=== PATIENT | female | born 1935 | race Caucasian/White ===

== ENCOUNTER 2016-11-23 20:23 | Observation (INO) | payer MEDICARE ==
[~2016-11-23] VITALS: Ht 162.6 cm; Wt 90.5 kg
[~2016-11-23 20:23] MED LIST: LOTR5CAP3 PO; PRED20 PO; SPIR25 PO; VENTAER INH
[2016-11-23 20:36] VITALS: BP 193/98; PULSE 93; RESP 16; TEMP 98.2; O2SAT 96
[2016-11-23 20:41] VITALS: BP 185/96; PULSE 76; RESP 18; TEMP 98.3; O2SAT 93
[2016-11-23] MEDS ORDERED: SIMV20TA PO (20:51)
[2016-11-23] MEDS ORDERED: ESTR0.07 T-DERMAL (20:52)
[2016-11-23] MEDS ORDERED: DOXA1TAB43 PO (20:52)
[2016-11-23] MEDS ORDERED: ALBUAER3 INH (20:53)
[2016-11-23] MEDS ORDERED: CARV12.52 PO (20:53)
[2016-11-23] MEDS ORDERED: ESTR0.62 VAGINAL (20:54)
[2016-11-23] MEDS ORDERED: TRIA37.53 PO (20:54)
[2016-11-23 20:56] VITALS: O2SAT 94
[2016-11-23] MEDS ORDERED: SODIUM CHLORIDE 0.9% FLUSH 5 ML FLUSH IVF PRN (21:00)
--- NOTE | 2016-11-23 21:04 | PD ---
HPI Chief Complaint: Altered Mental Status Time Seen by Provider: 20:56 Travel History International Travel<30 days: No Contact w/Intl Traveler<30days: No Traveled to known affect area: No History of Present Illness HPI 81-year-old female presents to the emergency department with her son with her mental status. Patient was brought in due to recent change in short term memory. Today her had a syncopal episode and ambulance was called approximately 2:30-3:00 this afternoon. It was noted by the patient's neighbor and director of enterprise applications that she was not herself mentally. Her son who was driving down from [place] today arrived at his mother's house, and she was unaware that he was supposed to arrive although the son has texts on his phone where she was checking his progress driving down over the past 2 days. Patient is alert and oriented to time and place, and is able to pass acute stroke testing including serial sevens, the ability to say "teach a dog new tricks", "natural resource manager ", "tiptop", "without difficulty". Patient is unable to name the president however , and normally she is very pleasant medically savvy according to her son. She has no focal physical deficits. No pronator drift. No facial droop. No eye lid weakness. Patient is seen in conjunction with Dr. Figueroa in the room. Patient is complaining of no pain, dizziness, shortness of breath, or chest pain. She is aware of the fact that her was admitted although asked how he is doing repeatedly according to the son. Patient has no real recollection of the last day and a half. She is allergic to adhesive inhibitors and codeine. PFSH Past Medical History Asthma: Yes Diminished Hearing: No Immunizations Current: Yes Tetanus Vaccination: Unknown Influenza Vaccination: Yes ?: Not Menopausal: Yes Past Surgical History Abdominal Surgery: Yes (removal of a intestinal tumor.) Appendectomy: Yes Hysterectomy: Yes Joint Replacement: Yes (right knee miniscus) Other Surgery: Yes (removal of a breast tumor) Social History Alcohol Use: No Tobacco Use: No Substance Use: No Allergies-Medications (Allergen,Severity, Reaction): Coded Allergies: Codeine (Verified Allergy, Severe, 11/23/16) LIZZIE Inhibitors (Verified Allergy, Unknown, 11/23/16) Reported Meds & Prescriptions Reported Meds & Active Scripts Active Reported Triamterene-Hydrochlorothiazide 37.5-25 Mg Cap 1 Cap PO DAILY Premarin Vaginal (Estrogens, Conjugated Vaginal) 0.625 Mg/Gm Cream 1 Gm VAGINAL HS Proair Hfa 8.5 GM Inh (Albuterol Sulfate) 90 Mcg/Act Aer 2 Puff INH Q4-6H PRN 108 mcg/actuation Carvedilol 12.5 Mg Tab 12.5 Mg PO BID Doxazosin (Doxazosin Mesylate) 8 Mg Tab 8 Mg PO DAILY Estradiol Patch 168 HR (Estradiol) 0.075 Mg/24 Hr Patch 1 Patch T-DERMAL Q7D Remove old patch and discard when new patch being placed. Simvastatin 20 Mg Tab 20 Mg PO DAILY Review of Systems ROS Limitations: Clinical Condition, Poor Historian Except as stated in HPI: all other systems reviewed are Neg General / Constitutional: No: Fever Eyes: No: Visual changes HENT: No: Headaches Cardiovascular: No: Chest Pain or Discomfort Respiratory: No: Shortness of Breath Gastrointestinal: No: Abdominal Pain Genitourinary: No: Dysuria Musculoskeletal: No: Pain Skin: No Rash Neurologic: No: Weakness Psychiatric: No: Depression Endocrine: No: Polydipsia Hematologic/Lymphatic: No: Easy Bruising Physical Exam Exam Limitations: Clinical Condition, Altered Mental Status Narrative GENERAL: Patient appears mildly anxious but otherwise in no acute distress. SKIN: Warm and dry. Normal color. Normal turgor. HEAD: Atraumatic. Normocephalic. EYES: Pupils equal and round. No scleral icterus. No injection or drainage. ENT: No nasal bleeding or discharge. Mucous membranes pink and moist. Pharynx is clear. Airway is patent. NECK: Trachea midline. No JVD. Supple nontender. CARDIOVASCULAR: Regular rate and rhythm. No murmurs gallops or rubs appreciated. RESPIRATORY: No accessory muscle use. Clear to auscultation. Breath sounds equal bilaterally. GASTROINTESTINAL: Abdomen soft, non-tender, nondistended. Hepatic and splenic margins not palpable. MUSCULOSKELETAL: Extremities without clubbing, cyanosis, or edema. No obvious deformities. NEUROLOGICAL: Awake and alert. No obvious cranial nerve deficits. Motor grossly within normal limits. Five out of 5 muscle strength in the arms and legs. Normal speech. Patient is seemingly very clear in most respects except she cannot recall who is currently president. Patient has facial droop or weakness. She is able to speak clearly and repeat appropriately "teach a dog new tricks, natural resource manager, tiptop", serial sevens, and serial threes appropriately. She has no focal deficit appreciated by physical exam. No pronator drift appreciated. PSYCHIATRIC: Appropriate mood and affect; insight and judgment normal. Data Data Last Documented VS Vital Signs Date Time Temp Pulse Resp B/P Pulse Ox O2 Delivery O2 Flow Rate FiO2 11/23/16 22:10 63 18 157/76 94 Room Air 11/23/16 20:41 98.3 Orders Electrocardiogram (11/23/16 20:54) Prothrombin Time / Inr (Pt) (11/23/16 20:54) Act Partial Throm Time (Ptt) (11/23/16 20:54) Complete Blood Count With Diff (11/23/16 20:54) Comprehensive Metabolic Panel (11/23/16 20:54) Creatine Kinase (Cpk) (11/23/16 20:54) Troponin I (11/23/16 20:54) Urinalysis - C+S If Indicated (11/23/16 20:54) Ct Brain W/O Iv Contrast(Rout) (11/23/16 20:54) Chest, Single Ap (11/23/16 20:54) Ecg Monitoring (11/23/16 20:54) Iv Access Insert/Monitor (11/23/16 20:54) Oximetry (11/23/16 20:54) Sodium Chloride 0.9% Flush (Ns Flush) (11/23/16 21:00) Carvedilol (Coreg) (11/23/16 21:30) Ondansetron Inj (Zofran Inj) (11/23/16 21:30) B-Type Natriuretic Peptide (11/23/16 21:38) Labs Laboratory Tests Test 11/23/16 21:00 White Blood Count 8.2 TH/MM3 Red Blood Count 4.84 MIL/MM3 Hemoglobin 16.0 GM/DL Hematocrit 46.3 % Mean Corpuscular Volume 95.8 FL Mean Corpuscular Hemoglobin 33.2 PG Mean Corpuscular Hemoglobin 34.6 % Concent Red Cell Distribution Width 13.4 % Platelet Count 175 TH/MM3 Mean Platelet Volume 10.0 FL Neutrophils (%) (Auto) 72.2 % Lymphocytes (%) (Auto) 18.3 % Monocytes (%) (Auto) 7.6 % Eosinophils (%) (Auto) 1.3 % Basophils (%) (Auto) 0.6 % Neutrophils # (Auto) 5.9 TH/MM3 Lymphocytes # (Auto) 1.5 TH/MM3 Monocytes # (Auto) 0.6 TH/MM3 Eosinophils # (Auto) 0.1 TH/MM3 Basophils # (Auto) 0.0 TH/MM3 CBC Comment DIFF FINAL Differential Comment Prothrombin Time 10.8 SEC Prothromb Time International 1.0 RATIO Ratio Activated Partial 24.3 SEC Thromboplast Time Sodium Level 135 MEQ/L Potassium Level 3.8 MEQ/L Chloride Level 101 MEQ/L Carbon Dioxide Level 25.1 MEQ/L Anion Gap 9 MEQ/L Blood Urea Nitrogen 12 MG/DL Creatinine 1.09 MG/DL Estimat Glomerular Filtration 48 ML/MIN Rate Random Glucose 127 MG/DL Calcium Level 9.5 MG/DL Total Bilirubin 0.6 MG/DL Aspartate Amino Transf 26 U/L (AST/SGOT) Alanine Aminotransferase 32 U/L (ALT/SGPT) Alkaline Phosphatase 73 U/L Total Creatine Kinase 108 U/L Troponin I LESS THAN 0.02 NG/ML Total Protein 8.0 GM/DL Albumin 3.7 GM/DL MDM Medical Decision Making Medical Screen Exam Complete: Yes Emergency Medical Condition: Yes Differential Diagnosis Acute short-term memory loss. Possible CVA. Possible TIA. Possible stress reaction. Electrolyte imbalance. Delirium. Narrative Course Patient appears medically stable at time of exam. CT the head is ordered without contrast. EKG is ordered. Labs ordered including CBC, CMP, creatinine, troponin, proBNP and urinalysis. Chest x-ray is ordered. Patient is given carvedilol 12.5 mg by mouth. CBC is unremarkable with a hemoglobin of 16. CMP shows sodium slightly low at 135. Potassium is normal 3.8. Chloride is 101. Creatinine slightly elevated at 1.09. Random glucose is 127. Troponin is less than 0.02. ProBNP is pending. Coags are negative. Head CT shows no acute process in the brain per radiology. Chest x-ray showed diffuse interstitial markings suggestive of pulmonary venous hypertension versus edema per radiologist. Patient is discussed with Dr. Figueroa, who recommends the patient be admitted for observation and neurological consult in the morning. 2220 hrs. call was placed to Dr. Baron discussed the patient for admission. Diagnosis Primary Impression: Mental status alteration Qualified Code: R40.4 - Transient alteration of awareness Additional Impression: Memory loss of unknown cause Condition: Stable Mihai Orta Nov 23, 2016 21:04
[2016-11-23 21:21] LABS: AUTOMATED NEUTROPHIL # 5.9 TH/MM3 (1.8-7.7); BASOPHIL % 0.6 % (0.0-2.0); EOSINOPHIL # 0.1 TH/MM3 (0-0.4); EOSINOPHIL % 1.3 % (0.0-4.0); HEMATOCRIT 46.3 % (35.0-46.0); HEMO FLAGS DIFF FINAL; LYMPH % 18.3 % (9.0-44.0); LYMPHOCYTE # 1.5 TH/MM3 (1.0-4.8); MEAN CELL VOLUME 95.8 FL (80.0-100.0); MEAN CORPUSCULAR HEMOGLOBIN 33.2 PG (27.0-34.0); MEAN CORPUSCULAR HGB CONC 34.6 % (32.0-36.0); MONO % 7.6 % (0.0-8.0); NEUT % 72.2 % (16.0-70.0); PLATELET COUNT 175 TH/MM3 (150-450); RED BLOOD COUNT 4.84 MIL/MM3 (4.00-5.30); RED CELL DISTRIBUTION WIDTH 13.4 % (11.6-17.2); WHITE BLOOD COUNT 8.2 TH/MM3 (4.0-11.0)
[2016-11-23 21:23] LABS: APTT (PATIENT) 24.3 SEC (24.3-30.1); PROTHROMBIN TIME - PATIENT 10.8 SEC (9.8-11.6)
[2016-11-23 21:29] VITALS: BP 166/79; PULSE 72; RESP 18; O2SAT 94
[2016-11-23] MEDS ORDERED: ONDANSETRON HCL 4 MG/2 ML VIAL IV PUSH ONE (21:30)
[2016-11-23] MEDS ORDERED: CARVEDILOL 12.5 MG TAB PO ONE (21:30)
[2016-11-23 21:31] LABS: ANION GAP 9 MEQ/L (5-15); BICARBONATE 25.1 MEQ/L (21.0-32.0); BLOOD UREA NITROGEN 12 MG/DL (7-18); CHLORIDE 101 MEQ/L (98-107); GLOMERULAR FILTRATION RATE 48 ML/MIN (>89); POTASSIUM 3.8 MEQ/L (3.5-5.1); SODIUM (NA) 135 MEQ/L (136-145)
[2016-11-23 21:37] LABS: ALKALINE PHOSPHATASE 73 U/L (45-117); ALT (GPT) 32 U/L (10-53); AST (GOT) 26 U/L (15-37); CREATINE KINASE 108 U/L (26-192); TOTAL BILIRUBIN ADULT 0.6 MG/DL (0.2-1.0)
--- NOTE | 2016-11-23 22:09 | RADRPT ---
EXAM DATE/TIME: 11/23/2016 21:03 [facility] COMPARISON: No previous studies available for comparison. INDICATIONS : Generalized weakness; evaluate for CVA. RADIATION DOSE: 42.92 CTDIvol (mGy) MEDICAL HISTORY : Intestinal tumor. SURGICAL HISTORY : Colon resection. Hysterectomy.Appendectomy.Lumpectomy. ENCOUNTER: Initial ACUITY: 1 day PAIN SCALE: 0/10 LOCATION: cranial TECHNIQUE: Multiple contiguous axial images were obtained of the head. Using automated exposure control and adj ustment of the mA and/or kV according to patient size, radiation dose was kept as low as reasonably a chievable to obtain optimal diagnostic quality images. FINDINGS: CEREBRUM: The ventricles are normal for age. No evidence of midline shift, mass lesion, hemorrhage or acute in farction. No extra-axial fluid collections are seen. POSTERIOR FOSSA: The cerebellum and brainstem are intact. The 4th ventricle is midline. The cerebellopontine angle i s unremarkable. EXTRACRANIAL: The visualized portion of the orbits is intact. SKULL: The calvaria is intact. No evidence of skull fracture. CONCLUSION: No acute disease. Obie Roy MD on November 23, 2016 at 22:06 Board Certified Radiologist. This report was verified electronically.
[2016-11-23 22:10] VITALS: BP 157/76; PULSE 63; RESP 18; O2SAT 94
--- NOTE | 2016-11-23 22:16 | RADRPT ---
EXAM DATE/TIME: 11/23/2016 21:16 [facility] COMPARISON: No previous studies available for comparison. INDICATIONS : Lightheaded, dizziness, and memory lapse. MEDICAL HISTORY : None. SURGICAL HISTORY : None. ENCOUNTER: Initial ACUITY: 1 day PAIN SCORE: 0/10 LOCATION: Bilateral chest FINDINGS: There heart size is upper limits of normal. The lungs demonstrate diffuse interstitial markings. Fo ange alveolar consolidation is not clearly seen. No effusion is seen. CONCLUSION: Diffuse increased interstitial markings likely representing pulmonary venous hyperten joanie or mild edema. Obie Roy MD on November 23, 2016 at 22:09 Board Certified Radiologist. This report was verified electronically.
[2016-11-23] MEDS ORDERED: DEXTROSE 50% IN WATER 50 ML VIAL(D50) IV PUSH PRN (22:45)
[2016-11-23] MEDS ORDERED: ONDANSETRON HCL 4 MG/2 ML VIAL IVP PRN (22:45)
[2016-11-23] MEDS ORDERED: SODIUM CHLORIDE 0.9% FLUSH 5 ML FLUSH FLUSH PRN (22:45)
[2016-11-23] MEDS ORDERED: NALOXONE HCL 0.4 MG/ML AMP IV PRN (22:45)
[2016-11-23] MEDS ORDERED: GLUCAGON 1 MG/ML VIAL OTHER PRN (22:45)
[2016-11-23] MEDS ORDERED: ACETAMINOPHEN 325 MG TAB PO PRN (22:45)
[2016-11-23] MEDS ORDERED: cloNIDine HCL 0.1 MG TAB PO PRN (23:00)
[2016-11-24 00:02] LABS: BACTERIA, URINE RARE /hpf; BLOOD, URINE NEG (NEG); GLUCOSE,URINE NEG (NEG); KETONE, URINE NEG (NEG); MUCUS URINE FEW /lpf (OCC); NITRITE,URINE NEG (NEG); SQUAMOUS EPITHELIAL CELL URINE 11 /hpf (0-5); URINE COLOR LIGHT-YELLOW (YELLW/STRAW)
[2016-11-24 00:15] LABS: COMMENT (UR) CATH-CULTURE IND; CULTURE IF INDICATED CATH CULTURE IND
[2016-11-24 01:37] VITALS: BP 137/78; PULSE 78; RESP 18; O2SAT 96
[2016-11-24] MEDS: DOXAZOSIN MESYLATE 4 MG TAB PO SCH ×2 (01:39→21:00)
[2016-11-24 02:19] VITALS: BP 150/78; PULSE 72; RESP 20; TEMP 98.2; O2SAT 92
[2016-11-24] MEDS: INSULIN ASPART SUPPLEMENTAL SCALE SQ SCH ×4 (06:08→20:12)
[2016-11-24 08:08] LABS: AMPHETAMINE, URINE NEG (NEG); BARBITURATES, URINE NEG (NEG); COCAINE, URINE NEG (NEG)
[2016-11-24] MEDS ORDERED: DOXAZOSIN MESYLATE 4 MG TAB PO SCH (09:00)
[2016-11-24] MEDS ORDERED: INFLUENZA VIRUS VACCINE (QUADRIVALENT) 0.5 ML SYR IM ONE (09:00)
[2016-11-24] MEDS ORDERED: PNEUMOCOCCAL POLYVALENT INJ 25 MCG/0.5 ML SYR IM ONE (09:00)
[2016-11-24] MEDS: PRAVASTATIN SOD 20 MG TAB PO SCH (09:15)
[2016-11-24] MEDS: TRIAMTERENE/HCTZ 37.5 MG/25 MG CAP PO SCH (09:15)
[2016-11-24] MEDS: CARVEDILOL 12.5 MG TAB PO SCH ×2 (09:15→21:23)
[2016-11-24] MEDS: SODIUM CHLORIDE 0.9% FLUSH 5 ML FLUSH FLUSH SCH ×2 (09:16→21:00)
--- NOTE | 2016-11-24 09:16 | RADRPT ---
EXAM DATE/TIME: 11/24/2016 08:31 [facility] COMPARISON: No previous studies available for comparison. INDICATIONS : Transient ischemic attack. MEDICAL HISTORY : Asthma. SURGICAL HISTORY : Appendectomy. Hysterectomy. Breast tumor removal. Right meniscus repair. Intestinal tumor removal. ENCOUNTER: Initial ACUITY: 2 days PAIN SCORE: 0/10 LOCATION: Bilateral neck PEAK SYSTOLIC VELOCITIES (cm/sec): ICA/CCA RATIO: Right: 1.4 Left: 1.1 ICA: Right: 97 Left: 87 CCA: Right: 71 Left: 81 ECA: Right: 90 Left: 99 VERTEBRAL: Right: 49 antegrade Left: 34 antegrade TECH NOTE: Elevated flow velocities and ICA/CCA ratios have been found to correlate with increased degrees of vessel stenosis, calculated as percentage of diameter relative to a normal segment of distal ICA/CCA FINDINGS: RIGHT CAROTID: Minimal patchy diffuse plaque. CCA is tortuous.. The waveforms are within normal limits. LEFT CAROTID: Minimal diffuse patchy plaque. The waveforms are within normal limits. VERTEBRAL ARTERIES: Antegrade flow is seen in both vertebral arteries. MISCELLANEOUS: None. CONCLUSION: Minimal bilateral carotid atherosclerosis. No stenosis. Obie Nicholson MD on November 24, 2016 at 9:14 Board Certified Radiologist. This report was verified electronically.
[2016-11-24 09:26] VITALS: BP 133/60; PULSE 62; RESP 18; TEMP 97; O2SAT 93
[2016-11-24 12:05] VITALS: BP 123/60; PULSE 58; RESP 18; O2SAT 95
--- NOTE | 2016-11-24 12:21 | MH ---
cc: ELZBIETA GALICIA M.D. DATE OF ADMISSION: 11/23/2016 ADMITTING DIAGNOSIS Altered mental status. HISTORY OF PRESENT ILLNESS This 81-year-old white female well-known to undersigned physician had recently experienced an upper respiratory infection with a cough and congestion, she states that it has been slowly improving. On the day of admission, the patient's had a syncopal episode and ended up being admitted to the hospital. When the patient was questioned about the events that occurred at that time she was unable to recall the events including calling EMS to take her to the hospital. She reported she had a gap in her memory but also she could not remember that her son was coming down to visit today and that she had been texting with him earlier. The patient herself had no syncope, no lightheadedness, dizziness, chest pain, shortness of breath, nausea, vomiting, diarrhea, she has had a cough. She has a history of asthma but denies any wheezing or dyspnea on exertion. She has had no abdominal pain, diarrhea, constipation, melena, hematochezia, vertigo, headaches, visual changes. She does have a problem with chronic urinary urgency due to a very large cystocele and rectocele but she has had no dysuria or hematuria. Initially it was thought that the patient might be hypoglycemic as she reported that she had not eaten or drank anything all day prior to her 's event. This combined with the stress of the event may have precipitated the hypoglycemia; however, after the patient ate and drank her mental status still remained not at baseline. She herself was taken to the emergency department and underwent an evaluation. PAST MEDICAL HISTORY The patient's past medical history is significant for - 1. History of skin cancers. 2. Asthma which is only symptomatic when she has an upper respiratory infection. 3. Generalized osteoarthritis. 4. Hypertension. 5. She has a very large rectocele, cystocele and enterocele but has declined surgical intervention. 6. She has non-insulin dependent diabetes. 7. Hyperlipidemia. 8. Carpal tunnel syndrome for which she underwent bilateral carpal tunnel releases. 9. She has had trigger fingers which have been released as well. 10. She has a history of a hyperplastic colonic polyp in 2011. 11. She is status post a right eye vitrectomy due to a macular retinal tear. 12. She is status post hysterectomy with right oophorectomy. 13. Status post left breast biopsy with benign pathology. 14. Status post resection of a benign tumor from the colon. 15. She is status post removal of skin cancers. 16. She had bilateral carpal tunnel release. 17. She has also had several trigger releases. MEDICATIONS Her current medications are - 1. Doxazosin 8 mg at bedtime. 2. Carvedilol 12.5 mg b.i.d. 3. Triamterene/HCTZ 37.5/25 mg one tablet daily. 4. Meclizine 25 mg three times a day as needed for vertigo. 5. Estradiol vaginal cream 0.1 mg per gram apply 4 grams intravaginally twice weekly. 6. Metformin ER 750 mg daily. 7. ProAir HFA inhaler two puffs every 4 hours as needed for shortness of breath or wheezing. 8. Estradiol patch 0.075 mg apply one patch weekly. 9. Simvastatin 20 mg one tablet daily. ALLERGIES CODEINE - WHICH CAUSED NAUSEA AND VOMITING. LIZZIE INHIBITORS - WHICH CAUSED ANGIOEDEMA. FAMILY HISTORY Positive for hypertension in her mother. She has siblings with melanoma and hypertension. SOCIAL HISTORY She is , retired. She previously worked with her in the [email or web address] business. She does not actively smoke nor did she in the past. She has an occasional alcoholic beverage on a social basis. REVIEW OF SYSTEMS Negative except as outlined above. PHYSICAL EXAMINATION VITAL SIGNS: Upon arrival to the emergency department the patient's blood pressure was 193/98 with a heart rate of 93, respirations 16, temperature 98.2 degrees Fahrenheit, oxygen saturation on room air was 96%. At the current time the blood pressure is 133/60 with a heart rate of 62, respirations 18, temperature 97 degrees Fahrenheit, oximetry is 93% on room air. GENERAL: This is an obese, elderly, white female sitting on the edge of the bed in no acute distress. HEENT: Pupils are equal, round and reactive to light. Extraocular movements are intact. Sclerae anicteric. Conjunctivae are pink. Mouth and throat reveal moist mucous membranes, no erythema or exudates. Dentition is good. NECK: Neck is supple without lymphadenopathy, JVD, bruits or thyromegaly. CARDIOVASCULAR: Revealed regular rate and rhythm without murmurs, rubs or gallops. LUNGS: Lungs are clear to auscultation without wheezes, rhonchi or rales. ABDOMEN: Abdomen is soft, nontender, nondistended with bowel sounds present. No masses palpable. GENITOURINARY/RECTAL: Deferred. LOWER EXTREMITIES: Reveal no appreciable edema. No calf tenderness. No Kusum's sign. 2+ distal pulses. No open areas. NEUROLOGIC: At the current time the patient is awake, alert, oriented x3. Speech is intact. Cranial nerves intact. No lateralizing deficits. Downgoing toes bilaterally. Cognition and memory appear to be intact except for a period of time yesterday of approximately 2-3 hours where she states that she has only partial memory of the events. She has recollection of the events of being in the emergency department yesterday evening. SKIN: Skin is warm and dry. LABORATORY DATA The patient's CBC was significant only for a hemoglobin of 16, hematocrit of 46.3. Comprehensive metabolic profile revealed a sodium o 135 which is just minimally low, creatinine 1.09 which is elevated, glucose was 127. The TSH was 2.020, troponin less than 0.02, CK was 108, ammonia level 31, BNP was 50. A urine drug screen was negative. Urinalysis revealed a specific gravity of 1.009, pH 6.0, large amount of leukocyte esterase, 9 RBCs, 5 WBCs, 11 epithelial cells, rare bacteria. Culture is pending. INR was 1.0, APTT 24.3. Carotid Dopplers revealed minimal bilateral carotid atherosclerosis but no stenosis. Chest x-ray revealed diffuse interstitial markings, likely representing pulmonary venous hypertension or mild edema. The noncontrast CT scan of the head revealed no acute disease. IMPRESSION This 81-year-old white female presented with altered mental status of acute onset. The onset coincided with an acute traumatic event with her having a syncopal episode at home. Possible etiologies include acute stress reaction versus hypertensive crisis versus hypoglycemia versus TIA versus CVA versus metabolic disturbance, less likely is seizure disorder. Other possible etiology includes delirium associated with an acute infection. PLAN 1. The patient does have a urinalysis suspicious for a UTI. I have started her on ciprofloxacin 250 mg twice daily. We will also evaluate with an EEG and an MRI of the brain to evaluate for the possibility of seizures versus TIA versus CVA. We have basically ruled out a metabolic disturbance with the current evaluation; however, I have consulted Neurology for assistance with further evaluation. The patient's mental status is back to baseline today. We will await Neurology consultation to determine if she needs any further evaluation than what is already ordered, if not the patient may be able to be discharged home later today. 2. Non-insulin and diabetes. I have held the patient's metformin at this time, blood sugars have been under adequate control. We will likely resume metformin after we are sure she is eating and drinking well. 3. Hypertension. The patient's blood pressure has been elevated overnight, blood pressure is better now. She is receiving her carvedilol and doxazosin and HCTZ. We will monitor blood pressure and adjust medication as needed. 4. Hyperlipidemia. The patient is to continue with statin therapy. 5. History of asthma. The patient is asymptomatic. Lungs are clear. Chest x-ray revealed some increased interstitial markings but there is no clinical support for a diagnosis of congestive heart failure. We will follow. 6. Upper respiratory infection. The patient states that her symptoms have greatly improved. She is not coughing or having any sinus or nasal congestion at this time. We will follow. I have explained to the patient her current condition and the plan of care, she expressed understanding and agreement. MD NEAL Gamino/BLAIRE /10:46 AM /11:29 AM
[2016-11-24] MEDS: CIPROFLOXACIN 250 MG TAB PO SCH ×2 (14:21→21:23)
--- NOTE | 2016-11-24 16:24 | EKG ---
Date Performed: 11/23/2016 Time Performed: 20:46:51 PTAGE: 81 years EKG: Sinus rhythm NORMAL ECG NO PREVIOUS TRACING DOCTOR: Florentin Lenz Interpretating Date/Time 11/24/2016 16:23:15
[2016-11-24] MEDS ORDERED: GADODIAMIDE PF 287 MG/ML 20 ML VIAL (for RAD MRI) IV ONE (16:57)
--- NOTE | 2016-11-24 19:16 | RADRPT ---
EXAM DATE/TIME: 11/24/2016 16:47 [facility] COMPARISON: No previous studies available for comparison. INDICATIONS : Altered mental status. CONTRAST: 18 cc Omniscan (gadodiamide) IV MEDICAL HISTORY : Diabetes mellitus type 2. SURGICAL HISTORY : Appendectomy. Hysterectomy. ENCOUNTER: Initial ACUITY: 1 day PAIN SCORE: 0/10 LOCATION: cranial TECHNIQUE: Multiplanar, multisequence MRI of the brain was performed both prior to and following the administrat ion of paramagnetic contrast. FINDINGS: CEREBRUM: The ventricles are normal for age. No evidence of midline shift, mass lesion, hemorrhage or acute in farction. No extraaxial fluid collections are seen. The pituitary gland and suprasellar cistern are normal in configuration. WHITE MATTER: Mild signal abnormalities are seen in the white matter. POSTERIOR FOSSA: The cerebellum and brainstem are intact. The 4th ventricle is midline. The cerebellopontine angle is unremarkable. The cerebellar tonsils are normal in position. DIFFUSION IMAGING: No focal areas of restricted diffusion are seen. No evidence of acute infarction. EXTRACRANIAL: The visualized portions of the orbits and paranasal sinuses are unremarkable. POST-CONTRAST: No abnormal areas of parenchymal or dural enhancement. No evidence of blood-brain barrier breakdown. CONCLUSION: 1. No acute findings. Mild chronic ischemic changes in the periventricular white matter. No recent in farct. No mass, hemorrhage or shift. No hydrocephalus. No abnormal enhancement post contrast. Liam Jorgensen MD on November 24, 2016 at 19:11 Board Certified Radiologist. This report was verified electronically.
[2016-11-24 19:45] VITALS: BP 154/75; PULSE 73; RESP 20; TEMP 97.8; O2SAT 95
--- NOTE | 2016-11-24 23:13 | MB ---
cc: KAYLIE WEBSTER DATE OF CONSULTATION 11/24/16 REASON FOR CONSULTATION <ental status change. HISTORY OF PRESENT ILLNESS Ms. Kaur is an 81-year-old female who was in her usual state health until yesterday. At that time, her had a syncopal episode. She states she was under quite a bit of stress related to that. She was able to call 9-1-1. However, after that she felt that she has no recall for events. She was not herself. She was working in the kitchen where she states normally she would have been attending to her . At the time, she was also texting to her son to come down to visit, but she did not have any recall of that. She did not recall EMS coming and picking her up. She had no focal deficits. No headache. She states she was under stress and possibly dehydrated. She feels back to her baseline state today. PAST MEDICAL HISTORY 1. History of skin cancer, 2. Asthma 3. Osteoarthritis, 4. Hypertension, 5. Rectocele, cystocele, enterocele 6. Non-insulin diabetes, 7. Carpal tunnel syndrome 8. Trigger fingers 9. Hyperplastic colon polyp 10. Hysterectomy, right oophorectomy 11. Benign breast biopsy 12. Resection benign tumor of the colon. 13. Skin cancer removal, 14. Bilateral carpal tunnel release. MEDICATIONS AT HOME 1. Doxazosin 2. Carvedilol 3. Triamterene. 4. Meclizine. 5. Estradiol. 6. Metformin 7. ProAir 8. Abbey. 9. Simvastatin. NEUROLOGIC EXAMINATION Blood pressure is 154/75, pulse 73, respirations are 20, temperature 97.8 degrees. Higher cortical functions - at this time she is alert and oriented with normal recall, no memory loss of the present time. Speech is fluent with no paraphasic errors. Comprehension normal. Cranial nerves II-XII are normal. Motor exam - 5/5 strength of all groups in both upper and lower extremities. There is no drift. Fine motor skills are normal. Reflexes are symmetric. IMAGING STUDIES MRI of the brain reveals chronic ischemic change. No hydrocephalus. No acute change present. No acute infarction. CT of the brain - no acute change present. Carotid ultrasound - no significant stenosis. IMPRESSION The episode is most likely characterized as transient global amnesia. Suspect that this may have been related to severe stress, possibly dehydration. There is no evidence of stroke on the MRI. The history is somewhat atypical for any type of seizure. She is back to her baseline at the present time. I would not recommend any additional neurologic workup at the present time. MD TEE Vazquez/ /10:54 PM /11:06 PM
[2016-11-24 23:39] VITALS: BP 135/73; PULSE 67; RESP 20; TEMP 97.5; O2SAT 95
[2016-11-25 03:51] VITALS: BP 119/59; PULSE 57; RESP 20; TEMP 98.3; O2SAT 95
[2016-11-25] MEDS: INSULIN ASPART SUPPLEMENTAL SCALE SQ SCH (06:32)
[2016-11-25 07:47] VITALS: BP 89/41; PULSE 59; RESP 20; TEMP 97.9; O2SAT 93
[2016-11-25] MEDS: TRIAMTERENE/HCTZ 37.5 MG/25 MG CAP PO SCH (08:27)
[2016-11-25] MEDS: CARVEDILOL 12.5 MG TAB PO SCH (08:27)
[2016-11-25] MEDS: PRAVASTATIN SOD 20 MG TAB PO SCH (08:35)
[2016-11-25] MEDS: CIPROFLOXACIN 250 MG TAB PO SCH (08:35)
[2016-11-25] MEDS: SODIUM CHLORIDE 0.9% FLUSH 5 ML FLUSH FLUSH SCH (08:35)
--- NOTE | 2016-11-25 11:34 | HHI.PR ---
Review/Management Diagnosis episode of transient global amnesia--probably related to stressors, underlying medical DX (bronchitis) with transient encephalopathy. Plan No additional neurologic work up Ok to discharge to home from neuro standpoint when ok with Dr Baron. Diagnosis/Plan: Subjective Subjective Comments No acute events reported memory and recall back to normal Active Medications Current Medications Medications (Trade) Dose Ordered Sig/Ghanshyam Route Start Time Stop Time Status Last Admin (NS Flush) 2 ml UNSCH PRN IVF 11/23/16 21:00 (NS Flush) 2 ml UNSCH PRN FLUSH 11/23/16 22:45 (NS Flush) 2 ml BID FLUSH 11/24/16 09:00 11/25/16 08:35 (Tylenol) 650 mg Q4H PRN PO 11/23/16 22:45 (Zofran Inj) 4 mg Q6H PRN IVP 11/23/16 22:45 (Narcan Inj) 0.4 mg UNSCH PRN IV 11/23/16 22:45 (D50w (Vial) Inj) 25 ml UNSCH PRN IV PUSH 11/23/16 22:45 (Glucagon Inj) 1 mg UNSCH PRN OTHER 11/23/16 22:45 (Coreg) 12.5 mg BID PO 11/24/16 09:00 11/24/16 21:23 (Dyazide 37.5-25 Mg) 1 cap DAILY PO 11/24/16 09:00 11/24/16 09:15 (Pravachol) 40 mg DAILY PO 11/24/16 09:00 11/25/16 08:35 (Cardura) 8 mg HS PO 11/23/16 23:00 11/24/16 21:00 (Catapres) 0.1 mg Q8HR PRN PO 11/23/16 23:00 (Cipro) 250 mg BID PO 11/24/16 11:00 11/25/16 08:35 Allergies Allergies Coded Allergies Codeine (Verified Allergy, Severe, 11/23/16) LIZZIE Inhibitors (Verified Allergy, Unknown, 11/23/16) Exam I&O / VS Vital Signs Date Time Temp Pulse Resp B/P Pulse Ox O2 Delivery O2 Flow Rate FiO2 11/25/16 07:47 97.9 59 20 89/41 93 11/25/16 03:51 98.3 57 20 119/59 95 11/24/16 23:39 97.5 67 20 135/73 95 11/24/16 19:45 97.8 73 20 154/75 95 11/24/16 12:05 58 18 123/60 95 Exam Comments alert, oriented, speech normal, normal memory CN 2-12 normal Motor --no focal abnormality Objective Micro and Labs Date/Time Procedure Status Source Growth 11/23/16 23:20 Urine Culture - Final Complete Urine Catheterized Urine 10-50,000 CFU/ML MIXED GRAM POSITIVE ... Darron Schafer PhD MD Nov 25, 2016 11:34
[2016-11-25 11:37] VITALS: BP 109/79; PULSE 71; RESP 20; TEMP 97.6; O2SAT 95
--- NOTE | 2016-11-25 13:01 | HHI.PR ---
Subjective Remarks Patient complains of head congestion and rhinorrhea. No fever. Mild Headache. These symptoms are consistent with URI that she had prior to admission. Mental status back to baseline. Ambulating independently. Taking po well. Voiding well. BP under adequate control. Blood glucose levels are well controlled without medication. Current Medications Medications (Trade) Dose Ordered Sig/Ghanshyam Route Start Time Stop Time Status Last Admin (NS Flush) 2 ml UNSCH PRN IVF 11/23/16 21:00 (NS Flush) 2 ml UNSCH PRN FLUSH 11/23/16 22:45 (NS Flush) 2 ml BID FLUSH 11/24/16 09:00 11/25/16 08:35 (Tylenol) 650 mg Q4H PRN PO 11/23/16 22:45 (Zofran Inj) 4 mg Q6H PRN IVP 11/23/16 22:45 (Narcan Inj) 0.4 mg UNSCH PRN IV 11/23/16 22:45 (D50w (Vial) Inj) 25 ml UNSCH PRN IV PUSH 11/23/16 22:45 (Glucagon Inj) 1 mg UNSCH PRN OTHER 11/23/16 22:45 (Coreg) 12.5 mg BID PO 11/24/16 09:00 11/24/16 21:23 (Dyazide 37.5-25 Mg) 1 cap DAILY PO 11/24/16 09:00 11/24/16 09:15 (Pravachol) 40 mg DAILY PO 11/24/16 09:00 11/25/16 08:35 (Cardura) 8 mg HS PO 11/23/16 23:00 11/24/16 21:00 (Catapres) 0.1 mg Q8HR PRN PO 11/23/16 23:00 (Cipro) 250 mg BID PO 11/24/16 11:00 11/25/16 08:35 Objective Vital Signs Date Time Temp Pulse Resp B/P Pulse Ox O2 Delivery O2 Flow Rate FiO2 11/25/16 11:37 97.6 71 20 109/79 95 11/25/16 07:47 97.9 59 20 89/41 93 11/25/16 03:51 98.3 57 20 119/59 95 11/24/16 23:39 97.5 67 20 135/73 95 11/24/16 19:45 97.8 73 20 154/75 95 Gen: Obese elderly WF in chair in NAD CV: RRR Lungs: CTA Axt: No edema Neuro: A & O X 3, CN intact, no lateralizing deficits, mental status at baseline Result Diagram: 11/23/16209911/23/162099 Imaging Last 48 hours Impressions Carotid Artery Ultrasound 11/24/16 0000 Signed Impressions: Service Date/Time: Thursday, November 24, 2016 08:31 - CONCLUSION: Minimal bilateral carotid atherosclerosis. No stenosis. Obie Nicholson MD Brain MRI 11/24/16 0000 Signed Impressions: Service Date/Time: Thursday, November 24, 2016 16:47 - CONCLUSION: 1. No acute findings. Mild chronic ischemic changes in the periventricular white matter. No recent infarct. No mass, hemorrhage or shift. No hydrocephalus. No abnormal enhancement post contrast. Liam Jorgensen MD Head CT 11/23/162053 Signed Impressions: Service Date/Time: Wednesday, November 23, 2016 21:03 - CONCLUSION: No acute disease. Obie Roy MD Chest X-Ray 11/23/162053 Signed Impressions: Service Date/Time: Wednesday, November 23, 2016 21:16 - CONCLUSION: Diffuse increased interstitial markings likely representing pulmonary venous hypertension or mild edema. Obie Roy MD Assessment and Plan Problem List: (1) Transient global amnesia Status: Resolved Plan: Work-up for altered mental status was unremarkable. Appreciate neurology consult. Agree her AMS was likely Transient global amnesia which has resolved. (2) Hypertension Status: Chronic Plan: BP under adequate control with current medication (3) Type 2 diabetes mellitus without complication Status: Chronic Plan: Adequate glycemic control without medication. Will followup blood glucose level as outpatient (4) Hyperlipidemia Status: Chronic Plan: Cont Statin therapy (5) Upper respiratory infection Status: Acute Plan: Viral infection. No antibiotics needed. She can use Mucinex DM 1 po bid prn cough and congestion. She does have history of asthma. She will use Albuterol inhaler tid until URI resolved to prevent secondary bronchospasm Assessment and Plan Urine culture revealed 10,000-50,000 col of mixed gram positive organisms consistent with contamination. No need for further antibiotics Discharge Planning Home today Problem Qualifiers (1) Hypertension: Qualified Code: I10 - Essential hypertension (2) Type 2 diabetes mellitus without complication: Qualified Code: E11.9 - Type 2 diabetes mellitus without complication, without long-term current use of insulin (3) Hyperlipidemia: Qualified Code: E78.2 - Mixed hyperlipidemia (4) Upper respiratory infection: Qualified Code: J06.9 - Viral upper respiratory tract infection Clyde Baron MD Nov 25, 2016 13:01
[2016-11-25] MEDS ORDERED: MUCI30TA2 PO (13:04)
[2016-11-25] MEDS ORDERED: ALBUAER3 INH (13:04)
== END 2016-11-25 15:21 | disposition home or self-care (01) ==
LOC: NEPE 20:23 → NEDA 22:45 → NEPGCP 11-24 01:53
PROVIDERS: ADMIT Family Medicine; ATTEND Family Medicine
DX: G45.4 Transient global amnesia (principal); R39.15 Urgency of urination; J06.9 Acute upper respiratory infection, unspecified; I10 Essential (primary) hypertension; E10.9 Type 1 diabetes mellitus without complications; E78.5 Hyperlipidemia, unspecified; J45.909 Unspecified asthma, uncomplicated; M15.9 Polyosteoarthritis, unspecified; N99.3 Prolapse of vaginal vault after hysterectomy; Z79.4 Long term (current) use of insulin; Z85.828 Personal history of other malignant neoplasm of skin; Z86.010 Personal history of colon polyps
CPT/HCPCS: 70450; 70553; 71010; 80053; 80307; 81001; 82140; 82550; 82948; 83880; 84443; 84484; 85025; 85610; 85730; 87086; 93005; 93880; 96374; 99285; A9579; G0378; J2405

== ENCOUNTER 2018-03-03 19:59 | Inpatient (IN) | payer MEDICARE ==
[~2018-03-03] VITALS: Ht 162.6 cm; Wt 86.1 kg
[~2018-03-03 19:59] MED LIST changes: +ALBUAER3 INH; +CARV12.52 PO; +DOXA1TAB43 PO; +ESTR0.07 T-DERMAL; +ESTR0.62 VAGINAL; +HUMIBIDDM PO; -LOTR5CAP3 PO; -PRED20 PO; +SIMV20TA PO; -SPIR25 PO; +TRIA37.53 PO; -VENTAER INH
[2018-03-03 20:00] VITALS: BP 141/92; PULSE 73; RESP 18; TEMP 99.8; O2SAT 95
[2018-03-03] MEDS ORDERED: PRED10 PO (20:45)
[2018-03-03] MEDS ORDERED: ROBA500T PO (20:45)
[2018-03-03] MEDS ORDERED: TRAM50TA PO (20:45)
[2018-03-03] MEDS ORDERED: CYCL10TA PO (20:45)
[2018-03-03] MEDS ORDERED: OXYC-392 PO (20:45)
[2018-03-03] MEDS ORDERED: DEXAMETHASONE SOD PHOS 20 MG/5 ML VIAL IV ONE (21:00)
[2018-03-03] MEDS ORDERED: LORazepam 2 MG/ML VIAL IV PUSH SCH (21:00)
--- NOTE | 2018-03-03 21:08 | PD ---
HPI . Buttock pain Chief Complaint: Pain: Acute or Chronic Time Seen by Provider: 20:12 Travel History International Travel<30 days: No Contact w/Intl Traveler<30days: No Traveled to known affect area: No History of Present Illness HPI Patient presents with chief complaint of left buttock pain. She reports pain which has been worsening for the last 4 days. She reports chronic degenerative disc disease. She states that she has been on a recent long car ride which seems to have exacerbated her hip pain. She reports that she has been in contact with her primary care physician about this and that he has given her some medication to take. She was not very clear as to exactly what she was taking and how she had been taking it. She does state that it does not work. She was given morphine in route here via [facility]. Nonetheless, she is still complaining with left hip pain which she rates 10/10. Pain is exacerbated by movement. She has not noted any relieving factors. There has been no acute injury. 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.) Appendectomy: Yes Hysterectomy: Yes Joint Replacement: Yes (right knee miniscus) Other Surgery: Yes (removal of a breast tumor) Social History Alcohol Use: No Tobacco Use: No Substance Use: No Allergies-Medications (Allergen,Severity, Reaction): Coded Allergies: codeine (Unverified Allergy, Severe, 03/03/18) benazepril (Unverified Allergy, Unknown, 03/03/18) captopril (Unverified Allergy, Unknown, 03/03/18) enalaprilat (Unverified Allergy, Unknown, 03/03/18) fosinopril (Unverified Allergy, Unknown, 03/03/18) lisinopril (Unverified Allergy, Unknown, 03/03/18) quinapril (Unverified Allergy, Unknown, 03/03/18) Reported Meds & Prescriptions Reported Meds & Active Scripts Active Proair Hfa 8.5 GM Inh (Albuterol Sulfate) 90 Mcg/Act Aer 2 Puff INH TID 108 mcg/actuation Reported Flexeril (Cyclobenzaprine HCl) 10 Mg Tab 10 Mg PO TID Robaxin (Methocarbamol) 500 Mg Tab 500 Mg PO QID Prednisone 10 Mg Tab 10 Mg PO DAILY Tramadol (Tramadol HCl) 50 Mg Tab 50 Mg PO Q6H PRN Oxycodone (Oxycodone HCl) 5 Mg Tab 5 Mg PO Q6H PRN Triamterene-Hydrochlorothiazide 37.5-25 Mg Cap 1 Cap PO DAILY Premarin Vaginal (Estrogens, Conjugated Vaginal) 0.625 Mg/Gm Cream 1 Gm VAGINAL HS Carvedilol 12.5 Mg Tab 12.5 Mg PO BID Doxazosin (Doxazosin Mesylate) 8 Mg Tab 8 Mg PO DAILY Estradiol Patch 168 HR (Estradiol) 0.075 Mg/24 Hr Patch 1 Patch T-DERMAL Q7D Remove old patch and discard when new patch being placed. Simvastatin 20 Mg Tab 20 Mg PO DAILY Review of Systems Except as stated in HPI: all other systems reviewed are Neg Physical Exam Narrative GENERAL: Patient presents via [facility] wearing sunglasses. SKIN: Warm and dry. Her extremities do not have any discoloration or swelling. Tactile temperature is normal. HEAD: Normocephalic/atraumatic. NECK: Normal range of motion. CARDIOVASCULAR: Regular rate and rhythm. RESPIRATORY: Nonlabored respirations. MUSCULOSKELETAL: Tenderness to palpation in the left buttock area but not along the lumbar spine. She complains with some pain with both logrolling and straight leg raising on the left. However, this pain seems to be pretty minimal. She did not resist movement at all. NEUROLOGICAL: Nonfocal. PSYCHIATRIC: Appropriate mood and affect. Data Data Last Documented VS Vital Signs Date Time Temp Pulse Resp B/P (MAP) Pulse Ox O2 Delivery O2 Flow Rate FiO2 03/03/18 21:24 76 16 158/51 (86) 96 Nasal Cannula 4.00 03/03/18 20:00 99.8 Orders Orders Dexamethasone Inj (Decadron Inj) (03/03/18 21:00) Lorazepam Inj (Ativan Inj) (03/03/18 21:00) ^ Saline Lock (03/03/18 20:47) Ct Lumb Spine W/O Contrast (03/03/18 20:47) MDM Medical Decision Making Medical Screen Exam Complete: Yes Emergency Medical Condition: Yes Differential Diagnosis Differential diagnosis of leg pain includes but is not limited to lumbar radiculopathy, arthritis, myalgias, DVT. Narrative Course This patient presents with atraumatic left buttock pain. She reports a history of long-standing DDD. She admits that she has been on treatment for this by her primary care physician. She also indicates that she has spoken with her primary care physician several times the last few days regarding her pain. She is less clear as to exactly how her pain has been treated acutely for the last few days. Mele Mendenhall has been queried and reviewed in order to try to determine exactly how her back pain has been treated. She was given tramadol No. 56 on 02/27. Prior to that, she was given oxycodone 5 mg #30 on 11/19. The patient indicated that she was also taking muscle relaxants for her back pain. I called her pharmacy and was told that she was prescribed Flexeril No. 30 on 02/27. The pharmacist also reports that she was given a prescription for prednisone taper yesterday along with Zofran. I then called her primary care provider, Dr. Clyde Baron. He confirms the above treatment. He also states that she has known DDD. He confirms that she has called him several times the past few days including numerous times during the night last night. He asked that I image her back to ensure that she does not have a compression fracture. He suggest a parenteral steroid and narcotic. She was given morphine per [facility]. I have ordered Decadron 10 mg IV and Ativan [address] Baron will see her in follow-up tomorrow. Last Impressions Lumbar Spine CT 03/03/182046 Signed Impressions: CONCLUSION: 1. At L4-5 there is a minimal anterolisthesis with a broad-based disc protrusi on and facet arthropathy resulting in focal moderate to severe canal stenosis. 2. At L3-4 there is a broad-based disc bulge with mild lateral recess stenosis . 3. No acute fracture. Diagnosis Primary Impression: Left buttock pain Additional Impression: DDD (degenerative disc disease), lumbar Additional Instructions: See Dr. Baron tomorrow Disposition: 01 DISCHARGE HOME Condition: Stable Diamante Pascal MD March 03, 2018 21:08
[2018-03-03 21:24] VITALS: BP 158/51; PULSE 76; RESP 16; O2SAT 96
--- NOTE | 2018-03-03 21:38 | RADRPT ---
EXAM DATE: 03/03/2018 9:26 PM EDT AGE/SEX: 82 years / Female INDICATIONS: Lower back pain for four days. CLINICAL DATA: This is the patient's initial encounter. Patient reports that signs and symptoms have been present for 4 - 6 days and indicates a pain score of 10/10. MEDICAL/SURGICAL HISTORY: Hypercholesterolemia. Appendectomy. Hysterectomy. RADIATION DOSE: 40.20 CTDI (mGy) ; Patient body habitus COMPARISON: No prior [facility] exams available for comparison. TECHNIQUE: Contiguous axial images were acquired with a multirow detector CT scanner without contras t. Multiplanar reconstructions in the sagittal and coronal plane were also performed. Using automate d exposure control and adjustment of the mA and/or kV according to patient size, radiation dose was k ept as low as reasonably achievable to obtain optimal diagnostic quality images. FINDINGS: There is no acute fracture or spondylolisthesis. No significant abnormality at E59-[id number]. At L2-3 there is a mild disc bulge and a mild lateral recess and foraminal encroachment. At L3-4 there is a broad-based disc bulge and facet arthropathy with mild lateral recess and foramina l encroachment. At L4-5 there is a broad-based disc protrusion and facet arthropathy with a focal moderate to severe canal and lateral recess stenosis and mild bilateral foraminal stenosis. At L5-S1 there is a broad-based disc bulge without significant bony canal or foraminal stenosis. CONCLUSION: 1. At L4-5 there is a minimal anterolisthesis with a broad-based disc protrusion and facet arthropat hy resulting in focal moderate to severe canal stenosis. 2. At L3-4 there is a broad-based disc bulge with mild lateral recess stenosis. 3. No acute fracture. Electronically signed by: Liam Jorgensen MD 03/03/2018 9:36 PM EDT
[2018-03-03 22:35] VITALS: BP 136/68; PULSE 74; RESP 16; O2SAT 97
[2018-03-04] VITALS (9 sets, daily range): BP systolic 122–140; BP diastolic 60–74; PULSE 66–76; RESP 16–20; TEMP 96.2–97.7; O2SAT 92–97
[2018-03-04] MEDS ORDERED: NALOXONE HCL 0.4 MG/ML AMP IV PUSH PRN (00:30)
[2018-03-04] MEDS ORDERED: BISACODYL 10 MG SUPP RECTAL PRN (00:30)
[2018-03-04] MEDS ORDERED: DEXTROSE 50% IN WATER 50 ML VIAL(D50) IV PUSH PRN (00:45)
[2018-03-04] MEDS ORDERED: GLUCAGON 1 MG/ML VIAL OTHER PRN (00:45)
--- NOTE | 2018-03-04 01:01 | RADRPT ---
EXAM DATE: 03/04/2018 12:52 AM EDT AGE/SEX: 82 years / Female INDICATIONS: Shortness of breath. CLINICAL DATA: This is the patient's initial encounter. Patient reports that signs and symptoms have been present for 1 day and indicates a pain score of 0/10. MEDICAL/SURGICAL HISTORY: Asthma. Breast biopsy. [place] [facility] [place]. . FINDINGS: There is improvement in pulmonary edema since the prior exam. Slight cardiomegaly has not changed. Th ere is chronic tendinitis in the right shoulder. Focal consolidation is not seen. CONCLUSION: Improvement in pulmonary edema. No significant edema remains at this time. Electronically signed by: Delores Juarez MD 03/04/2018 12:59 AM EDT
[2018-03-04 01:42] LABS: BLOOD, URINE TRACE (NEG); GLUCOSE,URINE NEG (NEG); KETONE, URINE 15 mg/dL (NEG); NITRITE,URINE NEG (NEG); PH, URINE 5.5 (5.0-8.5); URINE COLOR YELLOW (YELLW/STRAW); URINE LEUKOCYTE ESTERASE NEG (NEG)
[2018-03-04 01:51] LABS: BILIRUBIN, URINE NEG (NEG)
[2018-03-04 01:52] LABS: BACTERIA, URINE OCC /hpf; RBC, URINE 0-3 /hpf (0-3); SQUAMOUS EPITHELIAL CELL URINE 0-5 /hpf (0-5)
[2018-03-04] MEDS: INSULIN ASPART SUPPLEMENTAL SCALE SQ SCH ×4 (07:56→22:12)
[2018-03-04] MEDS: TRIAMTERENE/HCTZ 37.5 MG/25 MG CAP PO SCH (07:57)
[2018-03-04] MEDS: DOXAZOSIN MESYLATE 4 MG TAB PO SCH (07:57)
[2018-03-04] MEDS: CARVEDILOL 12.5 MG TAB PO SCH ×2 (07:57→21:58)
[2018-03-04] MEDS: PRAVASTATIN SOD 40 MG TAB PO SCH (07:57)
[2018-03-04] MEDS: HYDROmorphone HCL PF 2 MG/ML VIAL IV PUSH PRN ×4 (07:57→22:01)
[2018-03-04] MEDS: SODIUM CHLORIDE 0.9% FLUSH 10 ML FLUSH IV FLUSH SCH ×2 (07:57→21:54)
[2018-03-04] MEDS: DOCUSATE SODIUM 50 MG/SENNA 8.6 MG TAB PO SCH ×2 (07:57→21:58)
--- NOTE | 2018-03-04 09:42 | MH ---
cc: Clyde Baron MD DATE OF ADMISSION: 03/04/2018 DATE OF ADMISSION: 03/04/2018 ADMITTING DIAGNOSIS: Intractable back pain. HISTORY OF PRESENT ILLNESS: This 82-year-old white female well known to the undersigned physician, has a history of lumbar disk disease with previous episodes of low back pain with radiculopathy. The patient states that she was driving back from [place] where she was visiting family when she had the gradual onset of left low back pain, which increased in severity. The patient's pain was initially a dull, aching pain, but became more severe and over the last week it has become very severe. I spoke with the patient approximately 5 days prior to admission at which point she was instructed to begin ibuprofen 600 mg every 8 hours, Flexeril 10 mg up to 3 times a day as needed for muscle relaxer and tramadol 50 mg every 6 hours as needed for pain. The patient was taking the medication, but contacted the undersigned physician 2 days prior to admission stating that the pain was not improving at that point. The patient stated she had some oxycodone at home from her previous surgery. She was instructed to discontinue the tramadol and begin oxycodone. The patient also was instructed to discontinue ibuprofen and begin a prednisone taper. On the energy systems laboratory director hours in the day prior to admission, the patient called and stated that her pain was so severe that she was going to go to the emergency department. She ended up not going as she felt as if the pain was easing off. However, later in the day prior to admission, the patient had worsening pain. She contacted EMS and was transferred to this facility for further evaluation and treatment. In the emergency department, she was given Decadron and Ativan, but she was not given anything for pain. Her pain persisted and it was felt that she could not be discharged home due to the severity of the pain. The patient rates the pain as a 10/10. She states that it is a deep, aching pain which then grabs her if she moves in just about any direction. The patient's pain has been in the left low back and has been radiating to the left buttocks, but it has not gone into the lower extremity and it is constant. She has had no urinary urgency, frequency, dysuria or hematuria. She states her bowels have been moving well. She has had no abdominal pain, nausea, vomiting, headaches, visual changes, chest pain, shortness of breath, palpitations, lightheadedness, dizziness, cough, sputum production, GERD symptoms. She has had no weakness or numbness in the upper or lower extremities. She denies any lateralizing deficits, difficulty swallowing or difficulty speaking. She has had no fever, chills or night sweats. PAST MEDICAL HISTORY: Significant for history of skin cancer. She has a history of asthma, which is only intermittently symptomatic when she has upper respiratory infections. She has generalized osteoarthritis, hypertension. She had a severe rectocele and cystocele and underwent a colpodesis procedure approximately 2 months ago. She has NIDDM, hyperlipidemia, history of carpal tunnel syndrome and she is status post carpal tunnel release and she has a history of a hyperplastic colonic polyp in 2011. PAST SURGICAL HISTORY: Status post right eye vitrectomy due to macular retinal tear. She is status post hysterectomy with right oophorectomy, status post left breast biopsy with benign pathology, status post resection of a benign tumor from the colon. She has had skin cancer removed including one from her face and she had bilateral carpal tunnel release in the past with Dr. Jackson CURRENT MEDICATIONS: 1. Albuterol inhaler 2 puffs every 6 hours as needed. 2. Triamterene/hydrochlorothiazide 37.5/25 mg 1 tablet daily. 3. Carvedilol 12.5 mg 1 tablet twice daily. 4. Simvastatin 20 mg daily. 5. Doxazosin 8 mg 1 tablet at bedtime. 6. Estradiol patch 0.075 mg per 24 hours, apply 1 patch weekly. ALLERGIES: CODEINE, which cause nausea and vomiting. LIZZIE INHIBITORS which cause angioedema. FAMILY HISTORY: Noncontributory. SOCIAL HISTORY: She is , retired. She lives with her . She drinks alcohol occasionally on a social basis. She does not smoke at this time. REVIEW OF SYSTEMS: Negative as outlined above. PHYSICAL EXAMINATION: VITAL SIGNS: Upon arrival to the emergency department, her blood pressure is 141/92 with a heart rate of 73, respirations were 18, temperature 99.8 degrees Fahrenheit, oxygen saturation was 95%. At the current time, her blood pressure is 124/66 with a heart rate of 67, respirations 20, temperature 96.5 degrees orally and O2 saturation is 92% on 2 liters per minute per nasal cannula. GENERAL: This is an obese, elderly, white female in moderate distress due to low back pain. HEENT: Pupils equal, round, reactive to light. Extraocular movements are intact. Sclerae are anicteric. Mouth and throat reveal dry mucous membranes. No erythema or exudates. NECK: Supple without lymphadenopathy, JVD, bruits or thyromegaly. CARDIOVASCULAR: Regular rate and rhythm without murmurs, rubs or gallops. LUNGS: Clear to auscultation without wheeze, rhonchi or rales. ABDOMEN: Obese, soft, nontender, nondistended with bowel sounds present. No mass, no hepatosplenomegaly. GENITOURINARY AND RECTAL: Deferred. LOWER EXTREMITIES: Reveal no edema. No calf tenderness. No Kusum's sign. 2+ distal pulses. SKIN: Warm and dry. NEUROLOGIC: The patient is awake and alert, oriented x3. Speech is intact. Cranial nerves intact. No lateralizing deficits. Strength is 5/5 in the upper and lower extremities. Downgoing toes bilaterally. The patient has no short-term memory or cognitive deficits. LABORATORY DATA: Her catheterized urine specimen revealed a specific gravity of 1.020, pH 5.5, 15 mg% ketones, trace occult blood. There are 9-14 WBCs, 0-3 RBCs and occasional bacteria. Culture is indicated. Additional laboratory studies including a CMP and CBC are pending at this time. IMAGING STUDIES: The patient had a chest x-ray which revealed slight cardiomegaly, findings consistent with chronic tendinitis in the right shoulder. No focal consolidation was seen. The CT scan of the lumbar spine revealed L4-L5 minimal anterolisthesis with broad-based disk protrusion and facet arthropathy resulting in moderate to severe canal stenosis. At L3-L4 there was a broad-based bulge with mild lateral recess stenosis. No acute fracture. ASSESSMENT AND PLAN: 1. This 82-year-old white female presented with left-sided low back pain radiating to the buttocks. She has lumbar disk disease and lumbar spinal stenosis. I suspect she has an exacerbation of the disk disease resulting in this severe pain. At this point, the patient was given Dilaudid intravenous, which has helped with the pain. She states it has gone down to a 7-8/10 and she was able to rest some overnight. She has an MRI of the lumbar spine scheduled for this morning. Based on results, will make further recommendations. I will provide the patient with intravenous steroids to help with inflammation. She will continue with the Dilaudid and she will receive Zofran as needed for nausea associated with the use of the Dilaudid . If necessary, we will consult Interventional Pain Management for epidural steroid injections or nerve blocks, depending on the patient's response to the intravenous steroids. 2. Hypertension. The patient will continue on her usual medications. We will monitor blood pressure and adjust medication as needed. 3. Type 2 diabetes. The patient normally is diet controlled; however, with the addition of steroids she is likely to have hyperglycemia. I have ordered Accu-Cheks and a sliding scale of NovoLog insulin to cover elevated blood sugar readings. 4. Hyperlipidemia. Continue with statin therapy. The patient normally receives simvastatin, she will be on pravastatin in the hospital due to formulary restrictions. I have explained the plan of care to the patient and her , who is at the bedside; both expressed understanding and agreement. Clyde Baron MD JRM/JAMAAL , 08:57 AM , 09:42 AM
--- NOTE | 2018-03-04 10:03 | RADRPT ---
EXAM DATE: 03/04/2018 9:53 AM EDT AGE/SEX: 82 years / Female INDICATIONS: Radiculopathy. Lower back pain. CLINICAL DATA: This is the patient's initial encounter. Patient reports that signs and symptoms have been present for 1 day and indicates a pain score of 6/10. MEDICAL/SURGICAL HISTORY: Hypertension. Hysterectomy. Appendectomy. 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 COMPARISON: No prior [facility] exams available for comparison. TECHNIQUE: Multiplanar, multisequence MRI of the lumbar spine was performed without contrast. Patie nt was scanned in a sitting position; neutral, flexion, and extension scans were performed in the sa gittal plane. FINDINGS: Sagittal T1 and T2-weighted imaging is provided. The examination demonstrates minimal anterolisthesis of L4 relative to L5. There is desiccation of the disks throughout the lumbar spine. The cord termin ates in its appropriate location. 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 The paraspinous soft tissues demonstrate a 4.9 cm cyst arising from the right kidney but are otherwis e unremarkable. Axial imaging: T12/L1: The thecal space is adequate. The neural foramina are adequate. No significant abnormality is identified. L1/L2: The thecal space is adequate. The foramina are adequate. There is mild facet arthritis bilater ally. L2/L3: There is a desiccated, degenerated disc with osteophytic ridging and broad-based disc protrusi on. There is moderate facet arthritis bilaterally. There is mild narrowing of the thecal sac and the foramina bilaterally. L3/L4: There is partial desiccation of the disks with a small broad-based disc bulge. There is mild f acet arthritis bilaterally. The thecal space and foramina are adequate. L4/L5: There is a desiccated, degenerated disc with broad-based disc bulge and diffuse osteophytic ri dging. There is advanced facet arthritis bilaterally with degenerative facet and ligamentous hypertro phy. These combine and result in a moderate degree of spinal stenosis and bilateral foraminal narrowi ng. L5/S1: There is advanced facet arthritis bilaterally. There is minimal disc bulge. The thecal space a nd foramina are adequate. CONCLUSION: 1. Advanced degenerative spondylosis most notably at L2/3 at L4/5. There is at least a moderate degr ee of spinal stenosis at the L4/5 level. There is facet arthritis throughout the lower lumbar spine. The individual levels are dictated in detail above. 2. 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 Electronically signed by: Fran Rosario MD 03/04/2018 10:02 AM EDT
[2018-03-04] MEDS: methylPREDNISolone SOD SUCC 40 MG/1 ML VIAL IV PUSH SCH ×3 (10:15→21:59)
[2018-03-04 14:36] LABS: AUTOMATED NEUTROPHIL # 10.1 TH/MM3 (1.8-7.7); BASOPHIL # 0.1 TH/MM3 (0-0.2); BASOPHIL % 0.8 % (0.0-2.0); EOSINOPHIL % 0.2 % (0.0-4.0); HEMATOCRIT 43.6 % (35.0-46.0); HEMOGLOBIN 15.5 GM/DL (11.6-15.3); LYMPHOCYTE # 0.7 TH/MM3 (1.0-4.8); MEAN CELL VOLUME 94.6 FL (80.0-100.0); MEAN CORPUSCULAR HEMOGLOBIN 33.5 PG (27.0-34.0); MEAN CORPUSCULAR HGB CONC 35.4 % (32.0-36.0); MEAN PLATELET VOLUME 9.1 FL (7.0-11.0); MONO % 1.8 % (0.0-8.0); MONOCYTE # 0.2 TH/MM3 (0-0.9); NEUT % 91.2 % (16.0-70.0); PLATELET COUNT 295 TH/MM3 (150-450); RED BLOOD COUNT 4.61 MIL/MM3 (4.00-5.30); RED CELL DISTRIBUTION WIDTH 12.6 % (11.6-17.2); WHITE BLOOD COUNT 11.1 TH/MM3 (4.0-11.0)
[2018-03-04] MEDS ORDERED: ARTIFICIAL TEARS OPTH SOLN 15 ML BTL EACH EYE PRN (17:15)
[2018-03-04] MEDS: NYSTATIN SUSP 500,000 U/5 ML CUP SWISH-SWAL SCH ×2 (17:50→21:57)
[2018-03-04] MEDS: PANTOPRAZOLE SOD 40 MG DELAYED RELEASE TAB PO SCH (17:52)
[2018-03-04] MEDS: SULFAMETHOXAZOLE-TRIMETHOPRIM DS 800-160 MG TAB PO SCH ×2 (21:00→21:58)
[2018-03-05] VITALS: BP 134/75; PULSE 69; RESP 18; TEMP 97.6; O2SAT 94
[2018-03-05] MEDS: SODIUM CHLORIDE 0.9% FLUSH 10 ML FLUSH IV FLUSH PRN (06:30)
[2018-03-05] MEDS: methylPREDNISolone SOD SUCC 40 MG/1 ML VIAL IV PUSH SCH ×3 (06:30→21:37)
[2018-03-05] MEDS: HYDROmorphone HCL PF 2 MG/ML VIAL IV PUSH PRN ×4 (06:31→17:34)
[2018-03-05 06:48] LABS: CHLORIDE 95 MEQ/L (98-107); SODIUM (NA) 133 MEQ/L (136-145)
[2018-03-05 06:57] LABS: ALBUMIN 2.7 GM/DL (3.4-5.0); BICARBONATE 28.7 MEQ/L (21.0-32.0); BLOOD UREA NITROGEN 26 MG/DL (7-18); CALCIUM 9.8 MG/DL (8.5-10.1); GLUCOSE,RANDOM 277 MG/DL (74-106)
[2018-03-05 07:00] LABS: ALT (GPT) 18 U/L (10-53); AST (GOT) 15 U/L (15-37)
[2018-03-05 07:01] LABS: GLOMERULAR FILTRATION RATE 48 ML/MIN (>89)
[2018-03-05 07:02] LABS: TOTAL BILIRUBIN ADULT 0.4 MG/DL (0.2-1.0); TOTAL PROTEIN 7.8 GM/DL (6.4-8.2)
[2018-03-05 07:03] LABS: ALKALINE PHOSPHATASE 79 U/L (45-117)
[2018-03-05 07:50] VITALS: BP 127/75; PULSE 68; RESP 18; TEMP 96.5; O2SAT 95
[2018-03-05 08:14] VITALS: O2SAT 93
--- NOTE | 2018-03-05 08:49 | HHI.PR ---
Subjective Remarks Pain has improved. Patient states that she has a dull ache when she is lying or sitting still. She has a sharp pain which is still 7/10 with any movement. She has utilized the hydromorphone every 4-8 hours. She did sleep better overnight. She was found to have significant urinary retention. Alvarez catheter was placed. Her urine culture is still pending. Urinalysis revealed small bacteria. She was placed on Bactrim until the culture was resulted, however, the patient states that she had nausea and vomiting with Bactrim after surgery earlier this year. She refused to take it yesterday. When she was admitted, she had an extremely dry mouth. She has complaint of discomfort on the tongue with some splits in the tongue from the dry mouth. This was likely due to the use of the cyclobenzaprine and narcotic analgesics. The nurse reported seeing some white plaques on the tongue so nystatin was started. Patient states that the nystatin seems to have helped overnight. Glucose levels are for the most part >200. She is receiving a medium NovoLog sliding scale for coverage. Elevated glucose levels are not unexpected due to the patient receiving steroids. Normally she has diet-controlled diabetes. Blood pressure has been under good control with current medication. Patient remains on oxygen at 2 L/min per nasal cannula. She is performing incentive spirometry. Chest x-ray was unremarkable. She denies any chest pain or palpitations. Current Medications Medications (Trade) Dose Ordered Sig/Ghanshyam Route Start Time Stop Time Status Last Admin (Ativan Inj) 2 mg ONCE IV PUSH 03/03/18 21:00 03/03/18 21:15 (NS Flush) 2 ml UNSCH PRN IV FLUSH 03/04/18 00:30 03/05/18 06:30 (NS Flush) 2 ml BID IV FLUSH 03/04/18 09:00 03/04/18 21:54 (Narcan Inj) 0.4 mg UNSCH PRN IV PUSH 03/04/18 00:30 (Abi-Colace) 1 tab BID PO 03/04/18 09:00 03/04/18 21:58 (Milk Of Magnesia Liq) 30 ml Q12H PRN PO 03/04/18 00:30 (Dulcolax Supp) 10 mg DAILY PRN RECTAL 03/04/18 00:30 (Zofran Odt) 4 mg Q6H PRN PO 03/04/18 00:30 (Dilaudid Pf Inj) 1 mg Q3HR PRN IV PUSH 03/04/18 00:30 03/05/18 06:31 (Coreg) 12.5 mg BID PO 03/04/18 09:00 03/04/18 21:58 (Cardura) 8 mg DAILY PO 03/04/18 09:00 03/04/18 07:57 (Dyazide 37.5-25 Mg) 1 cap DAILY PO 03/04/18 09:00 03/04/18 07:57 (Pravachol) 40 mg DAILY PO 03/04/18 09:00 03/04/18 07:57 (D50w (Vial) Inj) 50 ml UNSCH PRN IV PUSH 03/04/18 00:45 (Glucagon Inj) 1 mg UNSCH PRN OTHER 03/04/18 00:45 (NovoLOG SUPPLEMENTAL SCALE) 1 ACHS SLIDING SCALE SQ 03/04/18 08:00 03/04/18 22:12 (SoluMEDROL INJ) 40 mg Q8HR IV PUSH 03/04/18 09:00 03/05/18 06:30 (Mycostatin Liq) 10 ml QID SWISH-SWAL 03/04/18 18:00 03/04/18 21:57 (Protonix) 40 mg DAILY PO 03/04/18 17:15 03/04/18 17:52 (Tears Naturale Opth Soln) 1 drop Q4H PRN EACH EYE 03/04/18 17:15 03/04/18 17:50 (Bactrim Ds 800-160 Mg) 1 tab Q12HR PO 03/04/18 21:00 (Percocet 7.5-325 Mg) 1 tab Q4H PRN PO 03/05/18 09:00 Objective Vital Signs Date Time Temp Pulse Resp B/P (MAP) Pulse Ox O2 Delivery O2 Flow Rate FiO2 03/05/18 08:14 93 Nasal Cannula 2.00 03/05/18 07:50 96.5 68 18 127/75 (92) 95 03/05/18 00:00 97.6 69 18 134/75 (94) 94 03/04/18 21:40 97 Nasal Cannula 2.00 03/04/18 20:00 97.7 72 18 130/67 (88) 95 03/04/18 16:00 97.0 66 20 134/70 (91) 92 03/04/18 11:31 96.9 69 20 122/68 (86) 92 I/O 03/04/18 03/04/18 03/04/18 03/05/18 03/05/18 03/05/18 07:00 15:00 23:00 07:00 15:00 23:00 Intake Total 1180 ml 240 ml Output Total 250 ml 1400 ml Balance 930 ml -1160 ml Intake Oral 1180 ml 240 ml Output Urine Total 250 ml 1400 ml # Voids 1 # Bowel Movements 0 General: Obese elderly white female sitting up in bed in no acute distress. Mouth: Moist mucous membranes. No plaques or exudates. Dentition good Neck is supple without lymphadenopathy, JVD, bruits or thyromegaly Cardiovascular examination reveals regular rate and rhythm without murmurs Lungs: Clear to auscultation Abdomen: Soft, nontender nondistended with bowel sounds present. Extremities: No edema. No calf tenderness or Homans sign Result Diagram: 03/04/18 1400 03/05/18 0500 Imaging Last 48 hours Impressions Lumbar Spine MRI 03/04/18 0000 Signed Impressions: CONCLUSION: 1. Advanced degenerative spondylosis most notably at L2/3 at L4/5. There is at least a moderate degree of spinal stenosis at the L4/5 level. There is facet a rthritis throughout the lower lumbar spine. The individual levels are dictated in detail above. 2. 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 Chest X-Ray 03/04/18 0000 Signed Impressions: CONCLUSION: Improvement in pulmonary edema. No significant edema remains at this time. Lumbar Spine CT 03/03/182046 Signed Impressions: CONCLUSION: 1. At L4-5 there is a minimal anterolisthesis with a broad-based disc protrusi on and facet arthropathy resulting in focal moderate to severe canal stenosis. 2. At L3-4 there is a broad-based disc bulge with mild lateral recess stenosis . 3. No acute fracture. Other Results Urine culture: Pending Assessment and Plan Problem List: (1) Intractable neuropathic pain of lumbosacral origin ICD Codes: M54.16 - Radiculopathy, lumbar region Status: Acute Plan: The patient has had improvement in the pain. It still severe with movement. I have asked physical therapy to see the patient to assess mobility and to assist the patient out of bed into a chair. I am going to prescribe for the patient oxycodone acetaminophen to begin this morning. We will try to control pain with oral medication in order for her to be discharged home. She is receiving Solu-Medrol. Will transition to a oral steroid taper in the next day or so. MRI lumbar spine reveals advanced facet arthritis and disc disease greatest at L4/5 with moderate degree of spinal stenosis. Pain is likely due to exacerbation of underlying arthritic changes and disc disease causing neural foraminal narrowing. (2) Urinary retention ICD Codes: R33.9 - Retention of urine, unspecified Status: Acute Plan: Acute urinary retention is likely due to the patient's immobility and the medications. She was taking cyclobenzaprine 3 times a day prior to admission. She has a Alvarez catheter in place. Will remove Alvarez catheter once patient is out of bed more. She does have a urine culture pending. Will discontinue Bactrim as she had nausea with it in the past and begin cephalexin to cover for possible UTI until culture is resulted. (3) Hypertension ICD Codes: I10 - Essential (primary) hypertension Status: Chronic Plan: Blood pressure under adequate control with current medication (4) Type 2 diabetes mellitus without complication ICD Codes: E11.9 - Type 2 diabetes mellitus without complications Status: Chronic Plan: The patient normally has diet-controlled diabetes, however, with the steroids in acute pain, her glucose levels are higher. I have increased the NovoLog sliding scale to a high dose level to cover elevated glucose levels. If necessary, will begin metformin orally. (5) Hyperlipidemia ICD Codes: E78.5 - Hyperlipidemia, unspecified Status: Chronic Plan: Continue statin therapy Problem Qualifiers (1) Hypertension: Qualified Codes: I10 - Essential (primary) hypertension (2) Type 2 diabetes mellitus without complication: Qualified Codes: E11.9 - Type 2 diabetes mellitus without complications (3) Hyperlipidemia: Qualified Codes: E78.2 - Mixed hyperlipidemia Clyde Baron MD March 05, 2018 08:49
[2018-03-05] MEDS: PANTOPRAZOLE SOD 40 MG DELAYED RELEASE TAB PO SCH (09:27)
[2018-03-05] MEDS: SODIUM CHLORIDE 0.9% FLUSH 10 ML FLUSH IV FLUSH SCH ×2 (09:27→21:38)
[2018-03-05] MEDS: TRIAMTERENE/HCTZ 37.5 MG/25 MG CAP PO SCH (09:27)
[2018-03-05] MEDS: DOXAZOSIN MESYLATE 4 MG TAB PO SCH ×2 (09:27→21:39)
[2018-03-05] MEDS: PRAVASTATIN SOD 40 MG TAB PO SCH ×2 (09:27→21:38)
[2018-03-05] MEDS: DOCUSATE SODIUM 50 MG/SENNA 8.6 MG TAB PO SCH ×2 (09:28→21:38)
[2018-03-05] MEDS: CARVEDILOL 12.5 MG TAB PO SCH ×2 (09:28→21:38)
[2018-03-05] MEDS: NYSTATIN SUSP 500,000 U/5 ML CUP SWISH-SWAL SCH ×4 (09:28→21:39)
[2018-03-05] MEDS: INSULIN ASPART SUPPLEMENTAL SCALE SQ SCH ×4 (09:29→21:40)
[2018-03-05 11:55] VITALS: BP 141/67; PULSE 68; RESP 18; TEMP 96.8; O2SAT 97
[2018-03-05] MEDS ORDERED: CEPHALEXIN MONOHYDRATE 500 MG CAP PO SCH (14:00)
[2018-03-05 15:57] VITALS: BP 142/74; PULSE 59; RESP 18; TEMP 96.7; O2SAT 95
[2018-03-05] MEDS: ONDANSETRON ODT 4 MG TAB PO PRN (18:26)
[2018-03-05] MEDS: oxyCODONE/ACETAMINOPHEN 7.5 MG/325 MG TAB PO PRN ×2 (18:26→21:39)
[2018-03-05 20:00] VITALS: BP 139/73; PULSE 65; RESP 20; TEMP 97.7; O2SAT 91; O2SAT 95
[2018-03-06] VITALS: BP 128/63; PULSE 61; RESP 20; TEMP 97.1; O2SAT 93
[2018-03-06] MEDS: methylPREDNISolone SOD SUCC 40 MG/1 ML VIAL IV PUSH SCH ×2 (06:35→14:00)
[2018-03-06] MEDS: SODIUM CHLORIDE 0.9% FLUSH 10 ML FLUSH IV FLUSH PRN (06:35)
[2018-03-06 08:00] VITALS: BP 152/73; PULSE 61; RESP 19; TEMP 97.4; O2SAT 93; O2SAT 95
[2018-03-06] MEDS ORDERED: MAGNESIUM HYDROXIDE SUSP 30 ML CUP PO ONE (08:15)
--- NOTE | 2018-03-06 08:23 | HHI.PR ---
Subjective Remarks Pain has been under better control overnight. She received Percocet last evening and did not need Dilaudid throughout the night. She states that she is having some more pain this morning but has not had any narcotic analgesics since last evening. Has not had a bowel movement since admission. Appetite is good. Blood sugars remain elevated due to steroids. She is receiving a sliding scale of NovoLog insulin. Blood pressure is under better control. She continues on oxygen at 1-2 L/min per nasal cannula. She has a history of COPD which typically is asymptomatic with usual activities. She denies any cough or chest congestion. She denies any chest pain or palpitations. Current Medications Medications (Trade) Dose Ordered Sig/Ghanshyam Route Start Time Stop Time Status Last Admin (NS Flush) 2 ml UNSCH PRN IV FLUSH 03/04/18 00:30 03/06/18 06:35 (NS Flush) 2 ml BID IV FLUSH 03/04/18 09:00 03/05/18 21:38 (Narcan Inj) 0.4 mg UNSCH PRN IV PUSH 03/04/18 00:30 (Abi-Colace) 1 tab BID PO 03/04/18 09:00 03/05/18 21:38 (Milk Of Magnesia Liq) 30 ml Q12H PRN PO 03/04/18 00:30 (Dulcolax Supp) 10 mg DAILY PRN RECTAL 03/04/18 00:30 (Zofran Odt) 4 mg Q6H PRN PO 03/04/18 00:30 03/05/18 18:26 (Dilaudid Pf Inj) 1 mg Q3HR PRN IV PUSH 03/04/18 00:30 03/05/18 17:34 (Coreg) 12.5 mg BID PO 03/04/18 09:00 03/05/18 21:38 (Dyazide 37.5-25 Mg) 1 cap DAILY PO 03/04/18 09:00 03/05/18 09:27 (D50w (Vial) Inj) 50 ml UNSCH PRN IV PUSH 03/04/18 00:45 (Glucagon Inj) 1 mg UNSCH PRN OTHER 03/04/18 00:45 (SoluMEDROL INJ) 40 mg Q8HR IV PUSH 03/04/18 09:00 03/06/18 06:35 (Mycostatin Liq) 10 ml QID SWISH-SWAL 03/04/18 18:00 03/05/18 21:39 (Protonix) 40 mg DAILY PO 03/04/18 17:15 03/05/18 09:27 (Tears Naturale Opth Soln) 1 drop Q4H PRN EACH EYE 03/04/18 17:15 03/04/18 17:50 (Percocet 7.5-325 Mg) 1 tab Q4H PRN PO 03/05/18 09:00 03/05/18 21:39 (NovoLOG SUPPLEMENTAL SCALE) 1 ACHS SLIDING SCALE SQ 03/05/18 09:25 03/05/18 21:40 (Cardura) 8 mg HS PO 03/05/18 21:00 03/05/18 21:39 (Pravachol) 40 mg HS PO 03/05/18 21:00 03/05/18 21:38 Objective Vital Signs Date Time Temp Pulse Resp B/P (MAP) Pulse Ox O2 Delivery O2 Flow Rate FiO2 03/06/18 00:00 97.1 61 20 128/63 (84) 93 03/05/18 22:39 20 03/05/18 20:00 95 Nasal Cannula 2.00 03/05/18 20:00 97.7 65 20 139/73 (95) 91 03/05/18 18:04 18 03/05/18 15:57 96.7 59 18 142/74 (96) 95 03/05/18 11:55 96.8 68 18 141/67 (91) 97 I/O 03/05/18 03/05/18 03/05/18 03/06/18 03/06/18 03/06/18 07:00 15:00 23:00 07:00 15:00 23:00 Intake Total 240 ml 300 ml 780 ml 1200 ml Output Total 1400 ml 850 ml 1200 ml Balance -1160 ml 300 ml -70 ml 0 ml Intake Oral 240 ml 300 ml 780 ml 1200 ml Output Urine Total 1400 ml 850 ml 1200 ml # Voids 1 # Bowel Movements 0 0 General: Obese elderly white female sitting up in bed in no acute distress Cardiovascular: Regular rate and rhythm without murmurs Lungs: Clear to auscultation Abdomen: Soft, nontender nondistended with bowel sounds present. Extremities: No calf tenderness or Homans sign. No edema Result Diagram: 03/04/18 1400 03/05/18 0500 Other Results Urine culture: No growth in 24 hours Assessment and Plan Problem List: (1) Intractable neuropathic pain of lumbosacral origin ICD Codes: M54.16 - Radiculopathy, lumbar region Status: Acute Plan: Pain is slowly improving. The Percocet did seem to help the pain. Will place patient on scheduled dosage of Percocet. She will have Dilaudid to use as needed but will reduce dosage to 0.5 mg every 4 hours as needed. Continue with steroids. Transition to oral steroids in the next 24-48 hours. Continue to work with physical therapy to improve mobility. (2) Urinary retention ICD Codes: R33.9 - Retention of urine, unspecified Status: Acute Plan: We will plan to remove Alvarez catheter tomorrow when patient is able to more easily get out of bed to bedside commode. (3) Hypertension ICD Codes: I10 - Essential (primary) hypertension Status: Chronic Plan: Blood pressure under adequate control with current medication (4) Type 2 diabetes mellitus without complication ICD Codes: E11.9 - Type 2 diabetes mellitus without complications Status: Chronic Plan: The patient normally has diet-controlled diabetes, however, with the steroids in acute pain, her glucose levels are higher. Will add metformin to improve baseline glycemic control. Continue with NovoLog sliding scale for coverage of elevated blood sugar readings. (5) Hyperlipidemia ICD Codes: E78.5 - Hyperlipidemia, unspecified Status: Chronic Plan: Continue statin therapy Assessment and Plan Urine culture did not have any growth after 24 hours. Will hold antibiotics for now. Problem Qualifiers (1) Hypertension: Qualified Codes: I10 - Essential (primary) hypertension (2) Type 2 diabetes mellitus without complication: Qualified Codes: E11.9 - Type 2 diabetes mellitus without complications (3) Hyperlipidemia: Qualified Codes: E78.2 - Mixed hyperlipidemia Clyde Baron MD March 06, 2018 08:23
[2018-03-06] MEDS: CARVEDILOL 12.5 MG TAB PO SCH ×2 (09:00→21:48)
[2018-03-06] MEDS: INSULIN ASPART SUPPLEMENTAL SCALE SQ SCH ×4 (09:00→21:00)
[2018-03-06] MEDS: PANTOPRAZOLE SOD 40 MG DELAYED RELEASE TAB PO SCH (09:00)
[2018-03-06] MEDS: NYSTATIN SUSP 500,000 U/5 ML CUP SWISH-SWAL SCH ×4 (09:00→21:48)
[2018-03-06] MEDS ORDERED: HYDROmorphone HCL PF 0.5 MG/0.5 ML SYRINGE IV PUSH PRN (09:00)
[2018-03-06] MEDS: ONDANSETRON ODT 4 MG TAB PO PRN ×3 (09:01→21:55)
[2018-03-06] MEDS: oxyCODONE/ACETAMINOPHEN 7.5 MG/325 MG TAB PO SCH ×3 (09:01→21:48)
[2018-03-06] MEDS: DOCUSATE SODIUM 50 MG/SENNA 8.6 MG TAB PO SCH ×2 (09:01→21:47)
[2018-03-06] MEDS: TRIAMTERENE/HCTZ 37.5 MG/25 MG CAP PO SCH (09:02)
[2018-03-06] MEDS: metFORMIN HCL 500 MG TAB PO SCH ×2 (09:02→17:16)
[2018-03-06] MEDS: POLYETHYLENE GLYCOL 17 GM PKG PO SCH (09:02)
[2018-03-06] MEDS: SODIUM CHLORIDE 0.9% FLUSH 10 ML FLUSH IV FLUSH SCH ×2 (09:02→20:25)
[2018-03-06 12:00] VITALS: BP 158/78; PULSE 57; RESP 19; TEMP 98.7; O2SAT 95
[2018-03-06] MEDS: RESP: ALBUTEROL 2.5 MG/IPRATROPIUM 0.5 MG NEB (SCH) NEB ×2 (14:59→19:28)
[2018-03-06 16:00] VITALS: BP 124/59; PULSE 55; RESP 19; TEMP 96.9; O2SAT 95
[2018-03-06] MEDS: predniSONE 20 MG TAB PO SCH (17:17)
[2018-03-06 19:30] VITALS: O2SAT 94
[2018-03-06 20:00] VITALS: BP 133/69; PULSE 56; RESP 22; TEMP 97.5; O2SAT 95
[2018-03-06] MEDS: PRAVASTATIN SOD 40 MG TAB PO SCH (21:47)
[2018-03-06] MEDS: DOXAZOSIN MESYLATE 4 MG TAB PO SCH (21:47)
[2018-03-06] MEDS: MAGNESIUM HYDROXIDE SUSP 30 ML CUP PO PRN (21:55)
[2018-03-07] VITALS (7 sets, daily range): BP systolic 125–145; BP diastolic 62–72; PULSE 56–74; RESP 18–22; TEMP 96.2–97; O2SAT 92–96
[2018-03-07] MEDS: oxyCODONE/ACETAMINOPHEN 7.5 MG/325 MG TAB PO SCH ×4 (03:00→20:34)
[2018-03-07] MEDS: RESP: ALBUTEROL 2.5 MG/IPRATROPIUM 0.5 MG NEB (SCH) NEB ×3 (07:32→19:51)
[2018-03-07] MEDS: INSULIN ASPART SUPPLEMENTAL SCALE SQ SCH ×4 (08:00→20:38)
[2018-03-07] MEDS: POLYETHYLENE GLYCOL 17 GM PKG PO SCH (08:03)
[2018-03-07] MEDS: metFORMIN HCL 500 MG TAB PO SCH ×2 (08:04→17:15)
[2018-03-07] MEDS: TRIAMTERENE/HCTZ 37.5 MG/25 MG CAP PO SCH (08:04)
[2018-03-07] MEDS: PANTOPRAZOLE SOD 40 MG DELAYED RELEASE TAB PO SCH (08:04)
[2018-03-07] MEDS: predniSONE 20 MG TAB PO SCH (08:04)
[2018-03-07] MEDS: DOCUSATE SODIUM 50 MG/SENNA 8.6 MG TAB PO SCH ×2 (08:04→20:34)
[2018-03-07] MEDS: NYSTATIN SUSP 500,000 U/5 ML CUP SWISH-SWAL SCH ×4 (08:05→20:33)
[2018-03-07] MEDS: CARVEDILOL 12.5 MG TAB PO SCH ×2 (08:05→20:34)
[2018-03-07] MEDS: SODIUM CHLORIDE 0.9% FLUSH 10 ML FLUSH IV FLUSH SCH ×2 (08:15→19:31)
--- NOTE | 2018-03-07 09:19 | HHI.FF ---
Face to Face Verification Diagnosis: (1) Intractable neuropathic pain of lumbosacral origin (2) Type 2 diabetes mellitus without complication (3) Hyperlipidemia (4) Hypertension Physical Therapy Order: Evaluate and Treat, Improve ambulation, Strength and gait training Occupational Therapy Order: Evaluate and Treat, Improve ADL Home Health Nursing Order: Medical education Signs/symptoms of disease process Medication education-adverse effect Nursing assessment with vital signs Home Health Aide Order: To Assist In: Bathing and personal care I have seen patient Johana Kaur on 03/07/18. My clinical findings support the need for the requested home health care services because: Ltd mobility - disease progression Limited ability to care for self High risk of falls I certify that my clinical findings support that this patient is homebound because: Unsteady gait/balance Unsafe to leave home unassisted Unable to use public transportation Clyde Baron MD Mar 07, 2018 09:18
--- NOTE | 2018-03-07 09:29 | HHI.PR ---
Subjective Remarks The patient was out of bed in a chair yesterday. She ambulated 25 feet with a 2 wheeled walker, however, pain became severe after 15 feet and she needed assistance for the last 10 feet. Patient states the pain is stable and is not severe when sitting or lying still. It is still sharp and more severe with movement. She states the pain is now in the bilateral low back and radiates to the buttocks bilaterally but significantly worse on the left than the right. She has no weakness or numbness in the lower extremities. IV came out yesterday and nursing unable to replace it. Patient is now receiving oral steroids and oxycodone acetaminophen. She still has not had a bowel movement. She received milk of magnesia last evening and again this morning. She is also receiving MiraLAX daily. Blood glucose levels are improved. Patient receiving metformin and a sliding scale of NovoLog insulin. Blood pressure under good control with current medication. She still has a Alvarez catheter in. Will be removed today and reinsert if no void in 6 hours. The patient remains on oxygen at 2 L/min per nasal cannula. Oxygen saturations between 95 and 96% which are improved. She is receiving nebulizer treatments with albuterol ipratropium bromide. She does have a baseline of COPD but normally is asymptomatic unless she has an upper respiratory infection. Chest x -ray was negative. Current Medications Medications (Trade) Dose Ordered Sig/Ghanshyam Route Start Time Stop Time Status Last Admin (NS Flush) 2 ml UNSCH PRN IV FLUSH 03/04/18 00:30 03/06/18 06:35 (NS Flush) 2 ml BID IV FLUSH 03/04/18 09:00 03/06/18 09:02 (Narcan Inj) 0.4 mg UNSCH PRN IV PUSH 03/04/18 00:30 (Abi-Colace) 1 tab BID PO 03/04/18 09:00 03/07/18 08:04 (Milk Of Magnesia Liq) 30 ml Q12H PRN PO 03/04/18 00:30 03/06/18 21:55 (Dulcolax Supp) 10 mg DAILY PRN RECTAL 03/04/18 00:30 (Zofran Odt) 4 mg Q6H PRN PO 03/04/18 00:30 03/06/18 21:55 (Coreg) 12.5 mg BID PO 03/04/18 09:00 03/07/18 08:05 (Dyazide 37.5-25 Mg) 1 cap DAILY PO 03/04/18 09:00 03/07/18 08:04 (D50w (Vial) Inj) 50 ml UNSCH PRN IV PUSH 03/04/18 00:45 (Glucagon Inj) 1 mg UNSCH PRN OTHER 03/04/18 00:45 (Mycostatin Liq) 10 ml QID SWISH-SWAL 03/04/18 18:00 03/07/18 08:05 (Protonix) 40 mg DAILY PO 03/04/18 17:15 03/07/18 08:04 (Tears Naturale Opth Soln) 1 drop Q4H PRN EACH EYE 03/04/18 17:15 03/04/18 17:50 (NovoLOG SUPPLEMENTAL SCALE) 1 ACHS SLIDING SCALE SQ 03/05/18 09:25 03/07/18 08:00 (Cardura) 8 mg HS PO 03/05/18 21:00 03/06/18 21:47 (Pravachol) 40 mg HS PO 03/05/18 21:00 03/06/18 21:47 (Percocet 7.5-325 Mg) 1 tab Q6H PO 03/06/18 09:00 03/07/18 08:14 (Dilaudid Pf Inj) 0.5 mg Q4H PRN IV PUSH 03/06/18 09:00 (Miralax) 17 gm DAILY PO 03/06/18 09:00 03/07/18 08:03 (Glucophage) 500 mg BIDPC PO 03/06/18 09:00 03/07/18 08:04 (Duoneb Neb) 1 ampule Q6HR WHILE AWAKE NEB NEB 03/06/18 14:00 03/07/18 07:32 (Deltasone) 40 mg DAILY PO 03/06/18 15:49 03/07/18 08:04 Objective Vital Signs Date Time Temp Pulse Resp B/P (MAP) Pulse Ox O2 Delivery O2 Flow Rate FiO2 03/07/18 08:00 96.8 56 18 134/63 (86) 95 03/07/18 07:36 96 Nasal Cannula 2.00 03/07/18 00:00 97.0 60 22 125/62 (83) 94 03/06/18 20:00 97.5 56 22 133/69 (90) 95 03/06/18 19:30 94 Nasal Cannula 2.00 03/06/18 16:11 18 03/06/18 16:00 96.9 55 19 124/59 (80) 95 03/06/18 12:00 98.7 57 19 158/78 (104) 95 I/O 03/06/18 03/06/18 03/06/18 03/07/18 03/07/18 03/07/18 07:00 15:00 23:00 07:00 15:00 23:00 Intake Total 1320 ml 800 ml 480 ml Output Total 1200 ml 800 ml 1700 ml Balance 120 ml 0 ml -1220 ml Intake Oral 1320 ml 800 ml 480 ml Output Urine Total 1200 ml 800 ml 1700 ml # Bowel Movements 0 0 1 CV: RRR Lungs: CTA Abd; soft, NT, ND, +BS Low Back: tender left lower lumbar area and into buttocks Result Diagram: 03/04/18 1400 03/05/18 0500 Assessment and Plan Problem List: (1) Intractable neuropathic pain of lumbosacral origin ICD Codes: M54.16 - Radiculopathy, lumbar region Status: Acute Plan: Pain is slowly improving. Will add Gabapentin 100 mg tid. Continue Percocet and Prednisone. Continue to increase activity. Patient is requesting wheelchair at home to assist with mobility. She has a 2 wheeled worker at home. (2) Urinary retention ICD Codes: R33.9 - Retention of urine, unspecified Status: Acute Plan: D/C Alvarez. Reinsert if unable to void. Urine culture was negative. No evidence of UTI. (3) Hypertension ICD Codes: I10 - Essential (primary) hypertension Status: Chronic Plan: Blood pressure under adequate control with current medication (4) Type 2 diabetes mellitus without complication ICD Codes: E11.9 - Type 2 diabetes mellitus without complications Status: Chronic Plan: Better glycemic control with metformin. Continue with sliding scale (5) Hyperlipidemia ICD Codes: E78.5 - Hyperlipidemia, unspecified Status: Chronic Plan: Continue statin therapy (6) COPD (chronic obstructive pulmonary disease) ICD Codes: J44.9 - Chronic obstructive pulmonary disease, unspecified Plan: Patient has been hypoxemic. She remains on 2 L/min per nasal cannula. Oxygen saturations improving with the nebulizer treatments. Will begin Breo ellipta as a maintenance inhaler. Wean oxygen as tolerated. Continue with incentive spirometry. Problem Qualifiers (1) Hypertension: Qualified Codes: I10 - Essential (primary) hypertension (2) Type 2 diabetes mellitus without complication: Qualified Codes: E11.9 - Type 2 diabetes mellitus without complications (3) Hyperlipidemia: Qualified Codes: E78.2 - Mixed hyperlipidemia (4) COPD (chronic obstructive pulmonary disease): Qualified Codes: J44.9 - Chronic obstructive pulmonary disease, unspecified Clyde Baron MD Mar 07, 2018 09:29
[2018-03-07] MEDS: FLUTICASONE 100 MCG/VILANTEROL 25 MCG INHALER INH SCH (11:06)
[2018-03-07] MEDS: ONDANSETRON ODT 4 MG TAB PO PRN ×2 (12:23→20:33)
[2018-03-07] MEDS: GABAPENTIN 100 MG CAP PO SCH ×2 (13:10→17:15)
[2018-03-07] MEDS: PRAVASTATIN SOD 40 MG TAB PO SCH (20:34)
[2018-03-07] MEDS: DOXAZOSIN MESYLATE 4 MG TAB PO SCH (20:34)
[2018-03-08] VITALS (7 sets, daily range): BP systolic 128–138; BP diastolic 62–78; PULSE 60–69; RESP 18–22; TEMP 96.4–98.3; O2SAT 91–95
[2018-03-08] MEDS: oxyCODONE/ACETAMINOPHEN 7.5 MG/325 MG TAB PO SCH ×4 (03:00→20:24)
[2018-03-08] MEDS: RESP: ALBUTEROL 2.5 MG/IPRATROPIUM 0.5 MG NEB (SCH) NEB ×2 (07:30→13:56)
[2018-03-08] MEDS: INSULIN ASPART SUPPLEMENTAL SCALE SQ SCH ×4 (07:38→20:25)
[2018-03-08] MEDS: POLYETHYLENE GLYCOL 17 GM PKG PO SCH (08:45)
[2018-03-08] MEDS: predniSONE 20 MG TAB PO SCH (08:46)
[2018-03-08] MEDS: metFORMIN HCL 500 MG TAB PO SCH ×2 (08:46→17:56)
[2018-03-08] MEDS: PANTOPRAZOLE SOD 40 MG DELAYED RELEASE TAB PO SCH (08:46)
[2018-03-08] MEDS: DOCUSATE SODIUM 50 MG/SENNA 8.6 MG TAB PO SCH ×2 (08:46→20:24)
[2018-03-08] MEDS: CARVEDILOL 12.5 MG TAB PO SCH ×2 (08:46→20:24)
[2018-03-08] MEDS: TRIAMTERENE/HCTZ 37.5 MG/25 MG CAP PO SCH (08:47)
[2018-03-08] MEDS: GABAPENTIN 100 MG CAP PO SCH ×3 (08:47→17:56)
[2018-03-08] MEDS: MAGNESIUM HYDROXIDE SUSP 30 ML CUP PO PRN (08:51)
[2018-03-08] MEDS: NYSTATIN SUSP 500,000 U/5 ML CUP SWISH-SWAL SCH ×4 (08:52→20:23)
[2018-03-08] MEDS: FLUTICASONE 100 MCG/VILANTEROL 25 MCG INHALER INH SCH (08:52)
[2018-03-08] MEDS: SODIUM CHLORIDE 0.9% FLUSH 10 ML FLUSH IV FLUSH SCH ×2 (08:52→19:49)
[2018-03-08] MEDS: ONDANSETRON ODT 4 MG TAB PO PRN ×2 (13:20→20:24)
[2018-03-08] MEDS ORDERED: RESP: ALBUTEROL 2.5 MG/IPRATROPIUM 0.5 MG NEB (PRN) NEB (14:15)
--- NOTE | 2018-03-08 14:24 | HHI.PR ---
Subjective Remarks Patient reports that she still has significant pain with standing and walking but she is able to ambulate with her 2 wheeled walker to the bathroom and back. She did ambulate with physical therapy with just standby assistance for 25 feet yesterday. She was able to complete the 25 feet unlike the prior day. She states that she has some discomfort with bed mobility but otherwise no discomfort with lying or sitting still. She was out of the bed for several hours yesterday. She reports that she has been out of the bed 3 or 4 times this morning. She continues to receive oxycodone acetaminophen and prednisone. Appetite is good. She still has not had a bowel movement. She is receiving milk of magnesia and MiraLAX. She states that she feels an urge to have a bowel movement but it has not yet passed. Blood pressure under good control with current medication. Blood glucose levels are significantly improved. Patient continues with metformin. She has been weaned off oxygen. Oxygen saturations ranged between 92-95%. She denies any cough or shortness of breath with exertion. She is still receiving Breo elliptia and nebulizer treatments. Current Medications Medications (Trade) Dose Ordered Sig/Ghanshyam Route Start Time Stop Time Status Last Admin (NS Flush) 2 ml UNSCH PRN IV FLUSH 03/04/18 00:30 03/06/18 06:35 (NS Flush) 2 ml BID IV FLUSH 03/04/18 09:00 03/06/18 09:02 (Narcan Inj) 0.4 mg UNSCH PRN IV PUSH 03/04/18 00:30 (Abi-Colace) 1 tab BID PO 03/04/18 09:00 03/08/18 08:46 (Milk Of Magnesia Liq) 30 ml Q12H PRN PO 03/04/18 00:30 03/08/18 08:51 (Dulcolax Supp) 10 mg DAILY PRN RECTAL 03/04/18 00:30 (Zofran Odt) 4 mg Q6H PRN PO 03/04/18 00:30 03/08/18 13:20 (Coreg) 12.5 mg BID PO 03/04/18 09:00 03/08/18 08:46 (Dyazide 37.5-25 Mg) 1 cap DAILY PO 03/04/18 09:00 03/08/18 08:47 (D50w (Vial) Inj) 50 ml UNSCH PRN IV PUSH 03/04/18 00:45 (Glucagon Inj) 1 mg UNSCH PRN OTHER 03/04/18 00:45 (Mycostatin Liq) 10 ml QID SWISH-SWAL 03/04/18 18:00 03/08/18 13:21 (Protonix) 40 mg DAILY PO 03/04/18 17:15 03/08/18 08:46 (Tears Naturale Opth Soln) 1 drop Q4H PRN EACH EYE 03/04/18 17:15 03/04/18 17:50 (NovoLOG SUPPLEMENTAL SCALE) 1 ACHS SLIDING SCALE SQ 03/05/18 09:25 03/08/18 12:24 (Cardura) 8 mg HS PO 03/05/18 21:00 03/07/18 20:34 (Pravachol) 40 mg HS PO 03/05/18 21:00 03/07/18 20:34 (Percocet 7.5-325 Mg) 1 tab Q6H PO 03/06/18 09:00 03/08/18 08:46 (Dilaudid Pf Inj) 0.5 mg Q4H PRN IV PUSH 03/06/18 09:00 (Miralax) 17 gm DAILY PO 03/06/18 09:00 03/08/18 08:45 (Glucophage) 500 mg BIDPC PO 03/06/18 09:00 03/08/18 08:46 (Duoneb Neb) 1 ampule Q6HR WHILE AWAKE NEB NEB 03/06/18 14:00 03/08/18 13:56 (Deltasone) 40 mg DAILY PO 03/06/18 15:49 03/08/18 08:46 (Neurontin) 100 mg TID PO 03/07/18 13:00 03/08/18 13:20 (Breo Ellipta 100-25 Inh) 1 puff DAILY INH 03/07/18 11:00 03/08/18 08:52 Objective Vital Signs Date Time Temp Pulse Resp B/P (MAP) Pulse Ox O2 Delivery O2 Flow Rate FiO2 03/08/18 13:30 96.4 67 20 128/63 (84) 92 03/08/18 09:46 18 03/08/18 09:00 97.5 69 18 128/63 (84) 94 03/08/18 07:35 95 21 03/08/18 00:00 97.5 60 22 131/67 (88) 91 03/07/18 20:00 96.5 74 22 137/70 (92) 94 03/07/18 19:51 92 21 03/07/18 18:00 96.2 63 18 145/68 (93) 92 I/O 03/07/18 03/07/18 03/07/18 03/08/18 03/08/18 03/08/18 07:00 15:00 23:00 07:00 15:00 23:00 Intake Total 480 ml 600 ml 1500 ml Output Total 1700 ml 300 ml Balance -1220 ml 300 ml 1500 ml Intake Oral 480 ml 600 ml 1500 ml Output Urine Total 1700 ml 300 ml # Voids 1 2 # Bowel Movements 1 0 Cardiovascular: Regular rate and rhythm without murmurs Lungs: Clear to auscultation without wheezes, rhonchi or rales Abdomen: Obese, mildly distended, bowel sounds present, no masses palpable, no tenderness to palpation Extremities: No calf tenderness or Homans sign. No edema. Result Diagram: 03/04/18 1400 03/05/18 0500 Assessment and Plan Problem List: (1) Intractable neuropathic pain of lumbosacral origin ICD Codes: M54.16 - Radiculopathy, lumbar region Status: Acute Plan: Pain is slowly improving. Patient is tolerating gabapentin. We will plan to titrate the dosage upward as tolerated. Continue with oxycodone acetaminophen and prednisone. Patient cannot tolerate oral NSAIDs. The patient 's mobility has significantly improved. She continues to make progress each day. (2) Urinary retention ICD Codes: R33.9 - Retention of urine, unspecified Status: Resolved Plan: The patient is voiding well. (3) Hypertension ICD Codes: I10 - Essential (primary) hypertension Status: Chronic Plan: Blood pressure under adequate control with current medication (4) Type 2 diabetes mellitus without complication ICD Codes: E11.9 - Type 2 diabetes mellitus without complications Status: Chronic Plan: Better glycemic control with metformin. Continue with sliding scale (5) Hyperlipidemia ICD Codes: E78.5 - Hyperlipidemia, unspecified Status: Chronic Plan: Continue statin therapy (6) COPD (chronic obstructive pulmonary disease) ICD Codes: J44.9 - Chronic obstructive pulmonary disease, unspecified Plan: Oxygen saturations adequate on room air. Continue with Breo Ellipta. Will change nebulizer treatments to as needed. Continue with incentive spirometry (7) Constipation ICD Codes: K59.00 - Constipation, unspecified Status: Acute Plan: Continue with current regimen and give patient Dulcolax Suppository today Problem Qualifiers (1) Hypertension: Qualified Codes: I10 - Essential (primary) hypertension (2) Type 2 diabetes mellitus without complication: Qualified Codes: E11.9 - Type 2 diabetes mellitus without complications (3) Hyperlipidemia: Qualified Codes: E78.2 - Mixed hyperlipidemia (4) COPD (chronic obstructive pulmonary disease): Qualified Codes: J44.9 - Chronic obstructive pulmonary disease, unspecified (5) Constipation: Qualified Codes: K59.03 - Drug induced constipation Clyde Baron MD Mar 08, 2018 14:24
[2018-03-08] MEDS ORDERED: BISACODYL 10 MG SUPP RECTAL ONE (15:00)
[2018-03-08] MEDS: PRAVASTATIN SOD 40 MG TAB PO SCH (20:24)
[2018-03-08] MEDS: DOXAZOSIN MESYLATE 4 MG TAB PO SCH (20:24)
[2018-03-09] VITALS: BP 132/68; PULSE 59; RESP 20; TEMP 96.4; O2SAT 92
[2018-03-09] MEDS: oxyCODONE/ACETAMINOPHEN 7.5 MG/325 MG TAB PO SCH ×4 (03:00→21:55)
[2018-03-09 07:45] VITALS: O2SAT 95
[2018-03-09 08:00] VITALS: BP 121/66; PULSE 59; RESP 16; TEMP 96.2; O2SAT 93
[2018-03-09] MEDS: INSULIN ASPART SUPPLEMENTAL SCALE SQ SCH ×4 (08:00→22:11)
[2018-03-09] MEDS: MAGNESIUM HYDROXIDE SUSP 30 ML CUP PO PRN ×2 (08:21→22:10)
[2018-03-09] MEDS: TRIAMTERENE/HCTZ 37.5 MG/25 MG CAP PO SCH (08:22)
[2018-03-09] MEDS: PANTOPRAZOLE SOD 40 MG DELAYED RELEASE TAB PO SCH (08:22)
[2018-03-09] MEDS: metFORMIN HCL 500 MG TAB PO SCH ×2 (08:22→18:09)
[2018-03-09] MEDS: GABAPENTIN 100 MG CAP PO SCH ×3 (08:23→18:08)
[2018-03-09] MEDS: NYSTATIN SUSP 500,000 U/5 ML CUP SWISH-SWAL SCH ×4 (08:23→21:56)
[2018-03-09] MEDS: DOCUSATE SODIUM 50 MG/SENNA 8.6 MG TAB PO SCH ×2 (08:23→21:00)
[2018-03-09] MEDS: predniSONE 20 MG TAB PO SCH (08:23)
[2018-03-09] MEDS: POLYETHYLENE GLYCOL 17 GM PKG PO SCH (08:24)
[2018-03-09] MEDS: CARVEDILOL 12.5 MG TAB PO SCH ×2 (08:24→21:54)
[2018-03-09] MEDS: FLUTICASONE 100 MCG/VILANTEROL 25 MCG INHALER INH SCH (08:26)
[2018-03-09] MEDS: SODIUM CHLORIDE 0.9% FLUSH 10 ML FLUSH IV FLUSH SCH ×2 (08:28→21:56)
--- NOTE | 2018-03-09 09:12 | HHI.PR ---
Subjective Remarks The patient reports that her pain was 2/10 this morning when lying in bed, however, when she stood up and walked around the room, her pain increased to 7/ 10. The pain is more localized to the left paraspinous lumbar area. She is no longer having any radiation to the left buttocks. She is receiving the oxycodone acetaminophen scheduled. She continues to receive prednisone and gabapentin. She is tolerating the gabapentin well. She still has not had a bowel movement despite MiraLAX and milk of magnesia. Appetite is good. Urine output is good. Blood glucose levels are controlled with metformin. She does still continue to have the sliding scale to use as needed. Oxygen levels good on room air. Patient denies any shortness of breath or cough. She is receiving the Breo ellipta. Current Medications Medications (Trade) Dose Ordered Sig/Ghanshyam Route Start Time Stop Time Status Last Admin (NS Flush) 2 ml UNSCH PRN IV FLUSH 03/04/18 00:30 03/06/18 06:35 (NS Flush) 2 ml BID IV FLUSH 03/04/18 09:00 03/06/18 09:02 (Narcan Inj) 0.4 mg UNSCH PRN IV PUSH 03/04/18 00:30 (Abi-Colace) 1 tab BID PO 03/04/18 09:00 03/09/18 08:23 (Milk Of Magnesia Liq) 30 ml Q12H PRN PO 03/04/18 00:30 03/09/18 08:21 (Dulcolax Supp) 10 mg DAILY PRN RECTAL 03/04/18 00:30 (Zofran Odt) 4 mg Q6H PRN PO 03/04/18 00:30 03/08/18 20:24 (Coreg) 12.5 mg BID PO 03/04/18 09:00 03/09/18 08:24 (Dyazide 37.5-25 Mg) 1 cap DAILY PO 03/04/18 09:00 03/09/18 08:22 (D50w (Vial) Inj) 50 ml UNSCH PRN IV PUSH 03/04/18 00:45 (Glucagon Inj) 1 mg UNSCH PRN OTHER 03/04/18 00:45 (Mycostatin Liq) 10 ml QID SWISH-SWAL 03/04/18 18:00 03/09/18 08:23 (Protonix) 40 mg DAILY PO 03/04/18 17:15 03/09/18 08:22 (Tears Naturale Opth Soln) 1 drop Q4H PRN EACH EYE 03/04/18 17:15 03/04/18 17:50 (NovoLOG SUPPLEMENTAL SCALE) 1 ACHS SLIDING SCALE SQ 03/05/18 09:25 03/08/18 20:25 (Cardura) 8 mg HS PO 03/05/18 21:00 03/08/18 20:24 (Pravachol) 40 mg HS PO 03/05/18 21:00 03/08/18 20:24 (Percocet 7.5-325 Mg) 1 tab Q6H PO 03/06/18 09:00 03/09/18 08:23 (Dilaudid Pf Inj) 0.5 mg Q4H PRN IV PUSH 03/06/18 09:00 (Miralax) 17 gm DAILY PO 03/06/18 09:00 03/09/18 08:24 (Glucophage) 500 mg BIDPC PO 03/06/18 09:00 03/09/18 08:22 (Deltasone) 40 mg DAILY PO 03/06/18 15:49 03/09/18 08:23 (Neurontin) 100 mg TID PO 03/07/18 13:00 03/09/18 08:23 (Breo Ellipta 100-25 Inh) 1 puff DAILY INH 03/07/18 11:00 03/09/18 08:26 (Duoneb Neb) 1 ampule Q6HR NEB PRN NEB 03/08/18 14:15 Objective Vital Signs Date Time Temp Pulse Resp B/P (MAP) Pulse Ox O2 Delivery O2 Flow Rate FiO2 03/09/18 07:45 95 21 03/09/18 00:00 96.4 59 20 132/68 (89) 92 03/08/18 20:00 98.3 62 20 138/78 (98) 92 03/08/18 19:50 94 21 03/08/18 16:14 97.5 69 19 130/62 (84) 92 03/08/18 15:35 18 03/08/18 13:30 96.4 67 20 128/63 (84) 92 I/O 6/2/18 03/08/18 03/08/18 03/09/18 03/09/18 03/09/18 07:00 15:00 23:00 07:00 15:00 23:00 Intake Total 1500 ml 720 ml 240 ml Balance 1500 ml 720 ml 240 ml Intake Oral 1500 ml 720 ml 240 ml # Voids 2 5 2 # Bowel Movements 0 0 0 Cardiovascular: Regular rate and rhythm Lungs: Clear to auscultation Extremities: No edema or calf tenderness. The lumbar back reveals tenderness just to the left of the midline at the lower lumbar area. No tenderness along the spinous processes or the disc. No sciatic notch tenderness. Result Diagram: 03/05/18 0500 Assessment and Plan Problem List: (1) Intractable neuropathic pain of lumbosacral origin ICD Codes: M54.16 - Radiculopathy, lumbar region Status: Acute Plan: The patient's pain has improved. It is more localized to the lumbar area. She still has significant pain with standing and walking. This patient lives at home with her and needs to be able to ambulate in order to care for herself. I discussed with the patient options for further treatment. She agrees to invasive radiology consultation for possible facet injection in the left lumbar spine. The radicular component of her pain has improved. It is now localized to the paraspinous area which is likely due to facet arthropathy. Will place consultation for invasive radiology. In the meantime patient will continue with current regimen of medication. (2) Hypertension ICD Codes: I10 - Essential (primary) hypertension Status: Chronic Plan: Blood pressure under adequate control with current medication (3) Type 2 diabetes mellitus without complication ICD Codes: E11.9 - Type 2 diabetes mellitus without complications Status: Chronic Plan: Good glycemic control with metformin. Continue with sliding scale (4) COPD (chronic obstructive pulmonary disease) ICD Codes: J44.9 - Chronic obstructive pulmonary disease, unspecified Plan: Oxygen saturations adequate on room air. Continue with Breo Ellipta. Continue with incentive spirometry (5) Constipation ICD Codes: K59.00 - Constipation, unspecified Status: Acute Plan: Will add lactulose 30 cc twice daily to patient's regimen. If no improvement, will need an enema. (6) Urinary retention ICD Codes: R33.9 - Retention of urine, unspecified Status: Resolved Plan: The patient is voiding well. (7) Hyperlipidemia ICD Codes: E78.5 - Hyperlipidemia, unspecified Status: Chronic Plan: Continue statin therapy Problem Qualifiers (1) Hypertension: Qualified Codes: I10 - Essential (primary) hypertension (2) Type 2 diabetes mellitus without complication: Qualified Codes: E11.9 - Type 2 diabetes mellitus without complications (3) COPD (chronic obstructive pulmonary disease): Qualified Codes: J44.9 - Chronic obstructive pulmonary disease, unspecified (4) Constipation: Qualified Codes: K59.03 - Drug induced constipation (5) Hyperlipidemia: Qualified Codes: E78.2 - Mixed hyperlipidemia Clyde Baron MD Mar 09, 2018 09:12
[2018-03-09] MEDS ORDERED: WHEE1EAC (09:14)
[2018-03-09 10:51] LABS: AUTOMATED NEUTROPHIL # 10.6 TH/MM3 (1.8-7.7); BASOPHIL # 0.2 TH/MM3 (0-0.2); BASOPHIL % 1.8 % (0.0-2.0); EOSINOPHIL # 0.1 TH/MM3 (0-0.4); EOSINOPHIL % 0.9 % (0.0-4.0); HEMATOCRIT 47.2 % (35.0-46.0); HEMOGLOBIN 15.7 GM/DL (11.6-15.3); LYMPH % 12.6 % (9.0-44.0); LYMPHOCYTE # 1.7 TH/MM3 (1.0-4.8); MEAN CELL VOLUME 96.3 FL (80.0-100.0); MEAN CORPUSCULAR HGB CONC 33.2 % (32.0-36.0); MEAN PLATELET VOLUME 8.1 FL (7.0-11.0); MONO % 4.8 % (0.0-8.0); MONOCYTE # 0.6 TH/MM3 (0-0.9); NEUT % 79.9 % (16.0-70.0); PLATELET COUNT 281 TH/MM3 (150-450); RED CELL DISTRIBUTION WIDTH 12.4 % (11.6-17.2); WHITE BLOOD COUNT 13.2 TH/MM3 (4.0-11.0)
[2018-03-09 10:58] LABS: CALCIUM 9.1 MG/DL (8.5-10.1)
[2018-03-09 10:59] LABS: BICARBONATE 30.5 MEQ/L (21.0-32.0); INTERNATIONAL NORMALIZED RATIO 1.1 RATIO; PROTHROMBIN TIME - PATIENT 11.1 SEC (9.8-11.6)
[2018-03-09] MEDS: LACTULOSE SYRUP 20 GM/30 ML CUP PO SCH ×2 (11:09→21:55)
[2018-03-09 12:00] VITALS: BP 130/71; PULSE 66; RESP 16; TEMP 96.2; O2SAT 93
[2018-03-09] MEDS: ONDANSETRON ODT 4 MG TAB PO PRN (13:09)
[2018-03-09 16:00] VITALS: BP 131/70; PULSE 68; RESP 16; TEMP 96.7; O2SAT 93
[2018-03-09 20:00] VITALS: BP 126/66; PULSE 58; RESP 20; TEMP 97.4; O2SAT 93
[2018-03-09] MEDS: DOXAZOSIN MESYLATE 4 MG TAB PO SCH (21:54)
[2018-03-09] MEDS: PRAVASTATIN SOD 40 MG TAB PO SCH (21:55)
[2018-03-10] VITALS (10 sets, daily range): BP systolic 100–142; BP diastolic 57–87; PULSE 58–78; RESP 18–20; TEMP 95–98.6; O2SAT 93–98
[2018-03-10] MEDS: oxyCODONE/ACETAMINOPHEN 7.5 MG/325 MG TAB PO SCH ×4 (04:31→21:25)
[2018-03-10] MEDS: ONDANSETRON ODT 4 MG TAB PO PRN ×3 (05:29→21:37)
[2018-03-10] MEDS: INSULIN ASPART SUPPLEMENTAL SCALE SQ SCH ×4 (07:56→21:28)
[2018-03-10] MEDS: POLYETHYLENE GLYCOL 17 GM PKG PO SCH (09:00)
[2018-03-10] MEDS: LACTULOSE SYRUP 20 GM/30 ML CUP PO SCH (09:00)
[2018-03-10] MEDS: DOCUSATE SODIUM 50 MG/SENNA 8.6 MG TAB PO SCH ×2 (09:00→21:31)
[2018-03-10] MEDS: FLUTICASONE 100 MCG/VILANTEROL 25 MCG INHALER INH SCH (10:32)
[2018-03-10] MEDS: SODIUM CHLORIDE 0.9% FLUSH 10 ML FLUSH IV FLUSH SCH ×2 (10:32→21:32)
[2018-03-10] MEDS: predniSONE 20 MG TAB PO SCH (10:33)
[2018-03-10] MEDS: CARVEDILOL 12.5 MG TAB PO SCH ×2 (10:33→21:31)
[2018-03-10] MEDS: PANTOPRAZOLE SOD 40 MG DELAYED RELEASE TAB PO SCH (10:34)
[2018-03-10] MEDS: metFORMIN HCL 500 MG TAB PO SCH ×2 (10:34→17:21)
[2018-03-10] MEDS: GABAPENTIN 100 MG CAP PO SCH ×3 (10:35→17:21)
[2018-03-10] MEDS: NYSTATIN SUSP 500,000 U/5 ML CUP SWISH-SWAL SCH (10:36)
[2018-03-10] MEDS: TRIAMTERENE/HCTZ 37.5 MG/25 MG CAP PO SCH (10:36)
[2018-03-10] MEDS ORDERED: predniSONE 50 MG TAB PO ONE (12:45)
[2018-03-10 13:10] LABS: AUTOMATED NEUTROPHIL # 12.1 TH/MM3 (1.8-7.7); BASOPHIL # 0.3 TH/MM3 (0-0.2); BASOPHIL % 2.4 % (0.0-2.0); EOSINOPHIL # 0.1 TH/MM3 (0-0.4); EOSINOPHIL % 0.8 % (0.0-4.0); HEMATOCRIT 45.7 % (35.0-46.0); HEMOGLOBIN 15.5 GM/DL (11.6-15.3); LYMPH % 10.3 % (9.0-44.0); LYMPHOCYTE # 1.5 TH/MM3 (1.0-4.8); MEAN CELL VOLUME 96.6 FL (80.0-100.0); MEAN CORPUSCULAR HEMOGLOBIN 32.7 PG (27.0-34.0); MEAN CORPUSCULAR HGB CONC 33.8 % (32.0-36.0); MEAN PLATELET VOLUME 7.9 FL (7.0-11.0); MONO % 2.4 % (0.0-8.0); MONOCYTE # 0.3 TH/MM3 (0-0.9); NEUT % 84.1 % (16.0-70.0); PLATELET COUNT 290 TH/MM3 (150-450); RED BLOOD COUNT 4.73 MIL/MM3 (4.00-5.30); RED CELL DISTRIBUTION WIDTH 12.6 % (11.6-17.2); WHITE BLOOD COUNT 14.3 TH/MM3 (4.0-11.0)
[2018-03-10 13:20] LABS: CHLORIDE 96 MEQ/L (98-107); SODIUM (NA) 134 MEQ/L (136-145)
[2018-03-10 13:23] LABS: CALCIUM 9.2 MG/DL (8.5-10.1)
[2018-03-10 13:24] LABS: ALBUMIN 2.9 GM/DL (3.4-5.0); BICARBONATE 28.8 MEQ/L (21.0-32.0); BLOOD UREA NITROGEN 23 MG/DL (7-18); GLUCOSE,RANDOM 164 MG/DL (74-106)
[2018-03-10 13:27] LABS: ALT (GPT) 26 U/L (10-53); AST (GOT) 15 U/L (15-37); GLOMERULAR FILTRATION RATE 43 ML/MIN (>89)
[2018-03-10 13:28] LABS: TOTAL BILIRUBIN ADULT 0.4 MG/DL (0.2-1.0)
[2018-03-10 13:30] LABS: ALKALINE PHOSPHATASE 78 U/L (45-117)
[2018-03-10 14:02] LABS: BILIRUBIN, URINE NEG (NEG); BLOOD, URINE NEG (NEG); GLUCOSE,URINE NEG (NEG); KETONE, URINE NEG (NEG); NITRITE,URINE NEG (NEG); URINE COLOR YELLOW (YELLW/STRAW); URINE LEUKOCYTE ESTERASE NEG (NEG)
[2018-03-10 14:18] LABS: BACTERIA, URINE OCC /hpf; RBC, URINE 0-3 /hpf (0-3); SQUAMOUS EPITHELIAL CELL URINE > 8 /hpf (0-5); WBC, URINE 0-2 /hpf (0-5)
--- NOTE | 2018-03-10 14:22 | RADRPT ---
EXAM DATE: 03/10/2018 2:17 PM EDT AGE/SEX: 82 years / Female INDICATIONS: Congestion CLINICAL DATA: This is the patient's initial encounter. Patient reports that signs and symptoms have been present for 1 day and indicates a pain score of 0/10. MEDICAL/SURGICAL HISTORY: Asthma. . Breast Biopsy COMPARISON: [facility], CHEST SINGLE AP, 03/04/2018. . FINDINGS: There is minimal linear parenchymal opacity at the left lung base. Right lung is clear. No pleural ef fusion is noted. Cardiac contours are satisfactory accounting for technique and projection CONCLUSION: Minimal left base parenchymal opacity. Electronically signed by: Obie Lawson MD 03/10/2018 2:21 PM EDT
[2018-03-10] MEDS ORDERED: TRIAMCINOLONE ACETONIDE 40 MG/ML VIAL ONE (14:32)
--- NOTE | 2018-03-10 16:35 | PD.RAD ---
Post Procedure Progress Note Pre Procedure Diagnosis: (1) Back pain (2) DDD (degenerative disc disease), lumbar Post Procedure Diagnosis: (1) Back pain (2) DDD (degenerative disc disease), lumbar Procedure Date: Mar 10, 2018 Supervising Radiologist: Rico Cheatham JR Proceduralist/Assist: Alondra Garcia, RT(R), Pb Rojas RT(R) Anesthesia: Local Plan of Activity Patient to Unit: Nursing Unit Patient Condition: Good See PACS Report for procedural detail/treatment Spinal Procedure Facet Injection L4-L5, L5-S1 Findings: Lower back pain. No LE radiculopathy. Exam under fluoro and MRI findings consistent with bilateral L4-5 and L5-S1 facet arthropathy. Successful bilateral facet injections at these two levels. Jr. Linden,Rico Schaeffer MD Mar 10, 2018 16:35
[2018-03-10] MEDS ORDERED: IOHEXOL 300 MG/ML 50 ML BTL (for RAD DIAG) OTHER ONE (17:07)
--- NOTE | 2018-03-10 17:58 | HHI.PR ---
Subjective Remarks Patient's temp was low overnight. I was not notified until I spoke with this am. Patient placed in warming blanket. Denies chest pain, SOB, abdominal pain, dysuria. She did have multiple soft to loose stools overnight. She had not had BM since prior to admission and was given multiple laxatives. Temp has now increased to 97.8. Patient reports pain had been better but with having to be more mobile has caused an increase in back pain. Blood glucose under good control. BP under adequate control. Continues to have adequate oxygenation on room air. Appetite good Current Medications Medications (Trade) Dose Ordered Sig/Ghanshyam Route Start Time Stop Time Status Last Admin (NS Flush) 2 ml UNSCH PRN IV FLUSH 03/04/18 00:30 03/06/18 06:35 (NS Flush) 2 ml BID IV FLUSH 03/04/18 09:00 03/10/18 10:32 (Narcan Inj) 0.4 mg UNSCH PRN IV PUSH 03/04/18 00:30 (Abi-Colace) 1 tab BID PO 03/04/18 09:00 03/09/18 21:00 (Milk Of Magnjaja Liq) 30 ml Q12H PRN PO 03/04/18 00:30 03/09/18 22:10 (Dulcolax Supp) 10 mg DAILY PRN RECTAL 03/04/18 00:30 (Zofran Odt) 4 mg Q6H PRN PO 03/04/18 00:30 03/10/18 10:39 (Coreg) 12.5 mg BID PO 03/04/18 09:00 03/10/18 10:33 (Dyazide 37.5-25 Mg) 1 cap DAILY PO 03/04/18 09:00 03/10/18 10:36 (D50w (Vial) Inj) 50 ml UNSCH PRN IV PUSH 03/04/18 00:45 (Glucagon Inj) 1 mg UNSCH PRN OTHER 03/04/18 00:45 (Protonix) 40 mg DAILY PO 03/04/18 17:15 03/10/18 10:34 (Tears Naturale Opth Soln) 1 drop Q4H PRN EACH EYE 03/04/18 17:15 03/04/18 17:50 (NovoLOG SUPPLEMENTAL SCALE) 1 ACHS SLIDING SCALE SQ 03/05/18 09:25 03/10/18 17:21 (Cardura) 8 mg HS PO 03/05/18 21:00 03/09/18 21:54 (Pravachol) 40 mg HS PO 03/05/18 21:00 03/09/18 21:55 (Percocet 7.5-325 Mg) 1 tab Q6H PO 03/06/18 09:00 03/10/18 15:32 (Miralax) 17 gm DAILY PO 03/06/18 09:00 03/09/18 08:24 (Glucophage) 500 mg BIDPC PO 03/06/18 09:00 03/10/18 17:21 (Deltasone) 40 mg DAILY PO 03/06/18 15:49 03/10/18 10:33 (Neurontin) 100 mg TID PO 03/07/18 13:00 03/10/18 17:21 (Breo Ellipta 100-25 Inh) 1 puff DAILY INH 03/07/18 11:00 03/10/18 10:32 (Duoneb Neb) 1 ampule Q6HR NEB PRN NEB 03/08/18 14:15 Objective Vital Signs Date Time Temp Pulse Resp B/P (MAP) Pulse Ox O2 Delivery O2 Flow Rate FiO2 03/10/18 16:32 18 03/10/18 12:00 97.5 67 18 109/67 (81) 93 03/10/18 10:28 95.9 70 20 116/64 (81) 03/10/18 08:00 96.2 70 19 100/57 (71) 94 03/10/18 07:45 94 21 03/10/18 06:41 95.0 03/10/18 06:00 95.0 58 20 112/86 (95) 98 03/10/18 00:00 96.2 71 20 142/81 (101) 94 03/09/18 20:15 21 03/09/18 20:00 97.4 58 20 126/66 (86) 93 I/O 03/09/18 03/09/18 03/09/18 03/10/18 03/10/18 03/10/18 07:00 15:00 23:00 07:00 15:00 23:00 Intake Total 240 ml 480 ml Balance 240 ml 480 ml Intake Oral 240 ml 480 ml # Voids 2 3 4 # Bowel Movements 0 3 Neck; Supple without LA, JVD, bruits or thyromegaly CV: RRR without murmurs Lungs: CTA Abd: soft, NT, ND, +BS, obese, no CVAT Ext: No edema or calf tenderness Result Diagram: 03/10/18 1300 03/10/18 1300 Assessment and Plan Problem List: (1) Hypothermia ICD Codes: T68.XXXA - Hypothermia, initial encounter Status: Acute Plan: The patient had low core body temp overnight. It started after vigorous diarrhea after many days constpation. Poss etiologies include infection, adrenal insufficiency, measurement error, medications. Temp was checked with different thermometers and was low each time. I am concerned that she had adrenal insufficiency due to acute stress from diarrhea. She has been on steroids for 2 weeks and may have adrenal suppression. Will give her additional dose Prednisone po since no current IV access. Will check labs, CXR and UA to rule out infectious etiology. Temp has improved. (2) Intractable neuropathic pain of lumbosacral origin ICD Codes: M54.16 - Radiculopathy, lumbar region Status: Acute Plan: Patient will have facet injection later today. Pain has overall improved. Poss Discharge tomorrow (3) Hypertension ICD Codes: I10 - Essential (primary) hypertension Status: Chronic Plan: Blood pressure under adequate control with current medication (4) Type 2 diabetes mellitus without complication ICD Codes: E11.9 - Type 2 diabetes mellitus without complications Status: Chronic Plan: Good glycemic control with metformin. Continue with sliding scale (5) COPD (chronic obstructive pulmonary disease) ICD Codes: J44.9 - Chronic obstructive pulmonary disease, unspecified Plan: Oxygen saturations adequate on room air. Continue with Breo Ellipta. Continue with incentive spirometry (6) Constipation ICD Codes: K59.00 - Constipation, unspecified Status: Acute Plan: Multiple BM's overnight. Discontinue Lactulose. Cont Miralax and colace (7) Urinary retention ICD Codes: R33.9 - Retention of urine, unspecified Status: Resolved Plan: The patient is voiding well. (8) Hyperlipidemia ICD Codes: E78.5 - Hyperlipidemia, unspecified Status: Chronic Plan: Continue statin therapy Problem Qualifiers (1) Hypothermia: Qualified Codes: T68.XXXA - Hypothermia, initial encounter (2) Hypertension: Qualified Codes: I10 - Essential (primary) hypertension (3) Type 2 diabetes mellitus without complication: Qualified Codes: E11.9 - Type 2 diabetes mellitus without complications (4) COPD (chronic obstructive pulmonary disease): Qualified Codes: J44.9 - Chronic obstructive pulmonary disease, unspecified (5) Constipation: Qualified Codes: K59.03 - Drug induced constipation (6) Hyperlipidemia: Qualified Codes: E78.2 - Mixed hyperlipidemia Clyde Baron MD Mar 10, 2018 17:58
[2018-03-10] MEDS: DOXAZOSIN MESYLATE 4 MG TAB PO SCH (21:30)
[2018-03-10] MEDS: PRAVASTATIN SOD 40 MG TAB PO SCH (21:32)
[2018-03-11] VITALS: BP 114/64; PULSE 62; RESP 20; TEMP 96.4; O2SAT 92
[2018-03-11] MEDS: oxyCODONE/ACETAMINOPHEN 7.5 MG/325 MG TAB PO SCH ×2 (03:23→08:32)
[2018-03-11 08:00] VITALS: BP 137/76; PULSE 68; RESP 20; TEMP 96.9; O2SAT 96
[2018-03-11] MEDS: FLUTICASONE 100 MCG/VILANTEROL 25 MCG INHALER INH SCH (08:30)
[2018-03-11] MEDS: SODIUM CHLORIDE 0.9% FLUSH 10 ML FLUSH IV FLUSH SCH (08:30)
[2018-03-11] MEDS: INSULIN ASPART SUPPLEMENTAL SCALE SQ SCH (08:30)
[2018-03-11] MEDS: PANTOPRAZOLE SOD 40 MG DELAYED RELEASE TAB PO SCH (08:31)
[2018-03-11] MEDS: DOCUSATE SODIUM 50 MG/SENNA 8.6 MG TAB PO SCH (08:31)
[2018-03-11] MEDS: predniSONE 20 MG TAB PO SCH (08:31)
[2018-03-11] MEDS: metFORMIN HCL 500 MG TAB PO SCH (08:32)
[2018-03-11] MEDS: CARVEDILOL 12.5 MG TAB PO SCH (08:32)
[2018-03-11] MEDS: GABAPENTIN 100 MG CAP PO SCH (08:32)
[2018-03-11] MEDS: TRIAMTERENE/HCTZ 37.5 MG/25 MG CAP PO SCH (08:33)
[2018-03-11] MEDS: POLYETHYLENE GLYCOL 17 GM PKG PO SCH (08:34)
--- NOTE | 2018-03-11 08:37 | HHI.PR ---
Subjective Remarks The patient states that her pain in her back is significantly better since she received the facet injections. She describes the pain with mobility as an ache now instead of a sharp pain. She is ambulating independently to the bathroom. She slept well. Appetite is good. Temperature has remained within normal limits. She has not had any additional bowel movement since the multiple bowel movements early yesterday morning. Denies any abdominal pain. She has no chest pain, shortness of breath, palpitations, lightheadedness, dizziness, orthopnea, PND, GERD symptoms, nausea or vomiting. Current Medications Medications (Trade) Dose Ordered Sig/Ghanshyam Route Start Time Stop Time Status Last Admin (NS Flush) 2 ml UNSCH PRN IV FLUSH 03/04/18 00:30 03/06/18 06:35 (NS Flush) 2 ml BID IV FLUSH 03/04/18 09:00 03/10/18 21:32 (Narcan Inj) 0.4 mg UNSCH PRN IV PUSH 03/04/18 00:30 (Abi-Colace) 1 tab BID PO 03/04/18 09:00 03/10/18 21:31 (Milk Of Magnesia Liq) 30 ml Q12H PRN PO 03/04/18 00:30 03/09/18 22:10 (Dulcolax Supp) 10 mg DAILY PRN RECTAL 03/04/18 00:30 (Zofran Odt) 4 mg Q6H PRN PO 03/04/18 00:30 03/10/18 21:37 (Coreg) 12.5 mg BID PO 03/04/18 09:00 03/10/18 21:31 (Dyazide 37.5-25 Mg) 1 cap DAILY PO 03/04/18 09:00 03/10/18 10:36 (D50w (Vial) Inj) 50 ml UNSCH PRN IV PUSH 03/04/18 00:45 (Glucagon Inj) 1 mg UNSCH PRN OTHER 03/04/18 00:45 (Protonix) 40 mg DAILY PO 03/04/18 17:15 03/10/18 10:34 (Tears Naturale Opth Soln) 1 drop Q4H PRN EACH EYE 03/04/18 17:15 03/04/18 17:50 (NovoLOG SUPPLEMENTAL SCALE) 1 ACHS SLIDING SCALE SQ 03/05/18 09:25 03/10/18 21:28 (Cardura) 8 mg HS PO 03/05/18 21:00 03/10/18 21:30 (Pravachol) 40 mg HS PO 03/05/18 21:00 03/10/18 21:32 (Percocet 7.5-325 Mg) 1 tab Q6H PO 03/06/18 09:00 03/11/18 03:23 (Miralax) 17 gm DAILY PO 03/06/18 09:00 03/09/18 08:24 (Glucophage) 500 mg BIDPC PO 03/06/18 09:00 03/10/18 17:21 (Deltasone) 40 mg DAILY PO 03/06/18 15:49 03/10/18 10:33 (Neurontin) 100 mg TID PO 03/07/18 13:00 03/10/18 17:21 (Breo Ellipta 100-25 Inh) 1 puff DAILY INH 03/07/18 11:00 03/10/18 10:32 (Duoneb Neb) 1 ampule Q6HR NEB PRN NEB 03/08/18 14:15 Objective Vital Signs Date Time Temp Pulse Resp B/P (MAP) Pulse Ox O2 Delivery O2 Flow Rate FiO2 03/11/18 08:00 96.9 68 20 137/76 (96) 96 03/11/18 00:00 96.4 62 20 114/64 (81) 92 03/10/18 20:52 94 21 03/10/18 20:00 96.7 63 20 139/87 (104) 95 03/10/18 16:32 18 03/10/18 16:00 98.6 78 19 125/67 (86) 93 03/10/18 12:00 97.5 67 18 109/67 (81) 93 03/10/18 10:28 95.9 70 20 116/64 (81) I/O 03/10/18 03/10/18 03/10/18 03/11/18 03/11/18 03/11/18 07:00 15:00 23:00 07:00 15:00 23:00 Intake Total 720 ml 120 ml 120 ml Balance 720 ml 120 ml 120 ml Intake Oral 720 ml 120 ml 120 ml # Voids 4 6 2 1 # Bowel Movements 3 0 0 0 Cardiovascular: Regular rate and rhythm Lungs: Clear to auscultation Back: The lumbar area reveals no tenderness palpation along the spinous processes, distal paraspinous musculature. No muscular spasm. No sciatic notch tenderness. Extremities: No edema Result Diagram: 03/10/18 1300 03/10/18 1300 Assessment and Plan Problem List: (1) Intractable neuropathic pain of lumbosacral origin ICD Codes: M54.16 - Radiculopathy, lumbar region Status: Acute Plan: The patient has had marked improvement in her pain after the facet injections. She is aware that the pain may increase somewhat as the local anesthetic wears off and the steroids begin to work. She is going to continue with the oxycodone and gabapentin. I am going to order home health physical therapy. She will have a walker and wheelchair at home to use as needed. (2) Hypertension ICD Codes: I10 - Essential (primary) hypertension Status: Chronic Plan: Blood pressure under adequate control with current medication (3) Type 2 diabetes mellitus without complication ICD Codes: E11.9 - Type 2 diabetes mellitus without complications Status: Chronic Plan: Blood sugars were higher after she received the additional dosage of prednisone yesterday. They should come back down to acceptable range in the next 24-36 hours. The patient will continue with Metformin (4) COPD (chronic obstructive pulmonary disease) ICD Codes: J44.9 - Chronic obstructive pulmonary disease, unspecified Plan: Oxygen saturations adequate on room air. Continue with Breo Ellipta. Continue with incentive spirometry (5) Constipation ICD Codes: K59.00 - Constipation, unspecified Status: Acute Plan: The patient is going to be discharged home on a regimen of docusate sodium, MiraLAX and Benefiber (6) Urinary retention ICD Codes: R33.9 - Retention of urine, unspecified Status: Resolved Plan: The patient is voiding well. (7) Hyperlipidemia ICD Codes: E78.5 - Hyperlipidemia, unspecified Status: Chronic Plan: Continue statin therapy (8) Hypothermia ICD Codes: T68.XXXA - Hypothermia, initial encounter Status: Resolved Plan: The patient's temperature remains low normal. No evidence of any infection. Leukocytosis likely due to steroids. Discharge Planning Patient will be discharged home today with home health Problem Qualifiers (1) Hypertension: Qualified Codes: I10 - Essential (primary) hypertension (2) Type 2 diabetes mellitus without complication: Qualified Codes: E11.9 - Type 2 diabetes mellitus without complications (3) COPD (chronic obstructive pulmonary disease): Qualified Codes: J44.9 - Chronic obstructive pulmonary disease, unspecified (4) Constipation: Qualified Codes: K59.03 - Drug induced constipation (5) Hyperlipidemia: Qualified Codes: E78.2 - Mixed hyperlipidemia (6) Hypothermia: Qualified Codes: T68.XXXA - Hypothermia, initial encounter Clyde Baron MD Mar 11, 2018 08:37
[2018-03-11] MEDS ORDERED: GABA100C4 PO (09:05)
[2018-03-11] MEDS ORDERED: ALBUAER3 INH (09:05)
[2018-03-11] MEDS ORDERED: Fluticason-Vilanter 100-25 Inh INH (09:05)
[2018-03-11] MEDS ORDERED: COLA100C5 PO (09:05)
[2018-03-11] MEDS ORDERED: METF500 PO (09:05)
[2018-03-11] MEDS ORDERED: OXYC1TAB35 PO (09:05)
[2018-03-11] MEDS ORDERED: ONDA4TAB7 PO (09:05)
[2018-03-11] MEDS ORDERED: WHEA1POW9 PO (09:05)
[2018-03-11] MEDS ORDERED: PRED20 PO (09:05)
--- NOTE | 2018-03-11 09:19 | HHI.DS ---
Discharge Summary Admission Date March 05, 2018 at 18:16 Discharge Date: Mar 11, 2018 Admitting Diagnosis left buttock pain (1) Intractable neuropathic pain of lumbosacral origin Diagnosis: Principal ICD Codes: M54.16 - Radiculopathy, lumbar region Status: Acute (2) Type 2 diabetes mellitus without complication Diagnosis: Secondary ICD Codes: E11.9 - Type 2 diabetes mellitus without complications Status: Chronic (3) COPD (chronic obstructive pulmonary disease) Diagnosis: Secondary ICD Codes: J44.9 - Chronic obstructive pulmonary disease, unspecified (4) Constipation Diagnosis: Secondary ICD Codes: K59.00 - Constipation, unspecified Status: Resolved (5) Urinary retention Diagnosis: Secondary ICD Codes: R33.9 - Retention of urine, unspecified Status: Resolved (6) Hypertension Diagnosis: Secondary ICD Codes: I10 - Essential (primary) hypertension Status: Chronic (7) Hyperlipidemia Diagnosis: Secondary ICD Codes: E78.5 - Hyperlipidemia, unspecified Status: Chronic Procedures Left L4/5 & L5/S1 facet injection-03/10/2018-Dr. Cheatham-interventional radiology Brief History This 82-year-old white female with known history of lumbar DJD and disc disease developed left-sided low back pain which radiated to the buttocks. The pain started after driving a long distance and arriving home. The patient had increasing pain. She was treated with oral anti-inflammatories, muscle relaxers and oral narcotic analgesics but had worsening pain. She then was switched to oral steroids but had no improvement. The patient's pain became so severe that on the day of admission, she contacted EMS and was brought to this facility for further evaluation and treatment. In the emergency department, the patient was given medication for pain but did not have significant improvement. Was felt she required inpatient evaluation and treatment of this severe pain. CBC/BMP: 03/10/18 1300 03/10/18 1300 Significant Findings Laboratory Tests Test 03/09/18 10:21 03/10/18 13:00 03/10/18 13:30 White Blood Count 13.2 TH/MM3 (4.0-11.0) 14.3 TH/MM3 (4.0-11.0) Hemoglobin 15.7 GM/DL (11.6-15.3) 15.5 GM/DL (11.6-15.3) Hematocrit 47.2 % (35.0-46.0) Neutrophils (%) (Auto) 79.9 % (16.0-70.0) 84.1 % (16.0-70.0) Neutrophils # (Auto) 10.6 TH/MM3 (1.8-7.7) 12.1 TH/MM3 (1.8-7.7) Activated Partial Thromboplast Time 22.0 SEC (24.3-30.1) Blood Urea Nitrogen 26 MG/DL (7-18) 23 MG/DL (7-18) Random Glucose 167 MG/DL (74-106) 164 MG/DL (74-106) Sodium Level 135 MEQ/L (136-145) 134 MEQ/L (136-145) Chloride Level 97 MEQ/L (98-107) 96 MEQ/L (98-107) Estimat Glomerular Filtration Rate 53 ML/MIN (>89) 43 ML/MIN (>89) Basophils (%) (Auto) 2.4 % (0.0-2.0) Basophils # (Auto) 0.3 TH/MM3 (0-0.2) Creatinine 1.20 MG/DL (0.50-1.00) Albumin 2.9 GM/DL (3.4-5.0) Urine Squamous Epithelial Cells > 8 /hpf (0-5) Urine Bacteria OCC /hpf (NONE) Hospital Course The patient was admitted to medical surgical bed. She was given IV narcotic analgesics, IV steroids, antiemetics. She was found to have significant urinary retention and a Alvarez catheter was placed. The patient has a history of hypertension and her usual antihypertensive medications were continued. Blood pressure was initially elevated due to the severity of her pain. A sliding scale of she has a history of type 2 diabetes which normally is diet controlled, however, with the use of the steroids, her glucose levels were elevated. Initially she was covered with NovoLog insulin, however, her glucose levels remained elevated so metformin 500 mg twice daily was added. Her glucose levels improved greatly. On March 10, 2018, the patient had an episode of hypothermia where her temperature decreased to 95 orally. This was confirmed with a second thermometer. She was placed on a heating blanket. The patient had experienced multiple large bowel movements prior to the onset of the hypothermia. She had not had a bowel movement since admission prior to that. An evaluation ruled out infectious etiology. There was concern that the patient was experiencing a degree of adrenal insufficiency due to adrenal suppression from the use of the steroids and the acute stress from the multiple bouts of diarrhea from the laxatives. The patient was given an additional dosage of prednisone. Her temperature came back up to normal range. She remained within acceptable range for the remainder of the hospitalization. Patient's pain continued to slowly improve. She was seen by physical therapy and her mobility was increased. She continued to have significant pain with movement and standing. On March 10, 2018, she underwent L4/5 & L5/S1 left-sided facet injections performed by Dr. Cheatham of interventional radiology. Following the procedure, the patient had significant pain relief and rated her pain on the day of discharge as a 3/5 with activity and nearly gone with sitting or lying. On the day discharge, the patient was ambulating independently in the room with a walker. She was passing stool without difficulty. The patient was voiding without difficulty. Appetite was good. Blood pressure and blood sugars were under adequate control. Was felt she had obtained maximum benefit from the hospitalization. The patient was discharged home in good condition with orders to have home health follow the patient for nursing, PT and OT. She will follow up with the undersigned physician on March 19, 2018. She was instructed to notify the undersigned physician for any increased pain, nausea, vomiting, shortness of breath, fever or chills. Activity will be limited to lifting no greater than 10 pounds. Discharge medications were listed on the medication reconciliation sheet. Any new prescriptions were sent electronically to the patient's pharmacy. Pt Condition on Discharge: Good Discharge Disposition: Discharge Home Discharge Instructions DIET: Follow Instructions for: Diabetic Diet Activities you can perform: See Additionl Instruction Additional Activity Instructio: The patient is to limit activity based on level of pain. She is to avoid heavy >10 pounds Clyde Baron MD Mar 11, 2018 09:19
[2018-03-11 12:00] VITALS: BP 132/74; PULSE 66; RESP 20; TEMP 97; O2SAT 96
== END 2018-03-11 12:14 | disposition home or self-care (01) | DRG 552 ==
LOC: PHED 19:59 → PHEDA 03-04 00:15 → PH3B 03-04 02:07 → OBSVTOIN 03-05 18:16
PROVIDERS: ADMIT Family Medicine; ATTEND Family Medicine
PROC: 3E0U33Z Introduction of Anti-inflammatory into Joints, Percutaneous Approach (ICD-10-PCS; principal; 2018-03-10)
PROC: BR16ZZZ Fluoroscopy of Lumbar Facet Joint(s) (ICD-10-PCS; 2018-03-10)
DX: M46.87 Other specified inflammatory spondylopathies, lumbosacral region (principal); E27.49 Other adrenocortical insufficiency; T68.XXXA Hypothermia, initial encounter; E11.65 Type 2 diabetes mellitus with hyperglycemia; M51.16 Intervertebral disc disorders with radiculopathy, lumbar region; J44.9 Chronic obstructive pulmonary disease, unspecified; M48.061 Spinal stenosis, lumbar region without neurogenic claudication; R33.9 Retention of urine, unspecified; R09.02 Hypoxemia; K59.00 Constipation, unspecified; I10 Essential (primary) hypertension; M15.9 Polyosteoarthritis, unspecified; J45.909 Unspecified asthma, uncomplicated; E78.2 Mixed hyperlipidemia; E66.9 Obesity, unspecified; Z68.32 Body mass index [BMI] 32.0-32.9, adult; Z85.828 Personal history of other malignant neoplasm of skin
CPT/HCPCS: 64493; 64494; 71045; 72131; 72148; 80048; 80053; 81001; 82948; 85025; 85610; 85730; 87086; 94150; 94640; 94664; G8987-GP; G8988-GP; J1100; J1170; J1815; J2060; J2920; J3301; J7512; Q9967